=== PATIENT | male | born 1935 | race Caucasian/White ===

== ENCOUNTER 2016-12-22 07:49 | Inpatient (IN) | payer MEDICARE, BC ==
[2016-12-22] MEDS ORDERED: Furosemide 40 MG/4 ML VIAL IVPUSH ONE (08:00)
[2016-12-22] MEDS ORDERED: Sodium Chloride 0.9% 1,000 ML IV SCH (08:00)
[2016-12-22] MEDS ORDERED: Morphine 4 MG/ML Syringe IVPUSH ONE (08:00)
[2016-12-22] MEDS ORDERED: Nitroglycerin 0.4 MG Tab.SL SL ONE (08:00)
[2016-12-22] MEDS ORDERED: Morphine 4 MG/ML Syringe ONE (08:03)
[2016-12-22] MEDS ORDERED: Nitroglycerin 0.4 MG Tab.SL ONE (08:03)
--- NOTE | 2016-12-22 08:07 | EDM.PDOC ---
ED HPI GENERAL MEDICAL PROBLEM - General Chief Complaint: Chest Pain Stated Complaint: [id number] HEART ATTACK Time Seen by Provider: 12/22/16 07:58 Source of Information: Reports: Patient, Family () History Limitations: Reports: No Limitations - History of Present Illness INITIAL COMMENTS - FREE TEXT/NARRATIVE: 81 yo white male w/ PMHx. CAHD s/p five cardiac stents c/o all night chest pains w/ SOB. Pt. also w/ increase leg swelling Onset Date: 12/21/16 Onset Time: 21:00 Duration: Hour(s): Location: Reports: Chest Quality: Reports: Ache Severity: Moderate Improves with: Reports: None Worsens with: Reports: None Associated Symptoms: Reports: Chest Pain, Shortness of Breath Middle Chest Pain Score (Numeric/FACES): 8 - Related Data Allergies Allergy/AdvReac Type Severity Reaction Status Date / Time carvedilol Allergy Severe Chest Verified 12/22/16 11:06 Tightness Penicillins Allergy Severe Swelling Verified 12/22/16 11:06 procaine [From Novocain] Allergy Severe Swelling Verified 12/22/16 11:06 metolazone Allergy Unknown Other Verified 12/22/16 11:06 Home Meds: Home Meds Bilberry Fruit [Bilberry] 150 mg PO BID 01/29/16 [History] Calcium Carbonate/Vitamin D3 [Calcium 500 + Vit D 400] 1 tab PO BID 01/29/16 [ History] Candesartan Cilexetil 32 mg PO DAILY 01/29/16 [History] Clopidogrel [Plavix] 75 mg PO DAILY 01/29/16 [History] Flaxseed Oil [Flaxseed] 1 cap PO BID 01/29/16 [History] Furosemide 40 mg PO DAILY 01/29/16 [History] Isosorbide Mononitrate [Imdur] 60 mg PO DAILY 01/29/16 [History] Lecithin, Soy [Lecithin] 1 cap PO BID 01/29/16 [History] Lutein/Zeaxanthin [Lutein-Zeaxanthin 25-5 mg Sfgl] 1 cap PO DAILY 01/29/16 [ History] Metoprolol Tartrate [Lopressor] 50 mg PO DAILY 01/29/16 [History] Pravastatin Sodium [Pravachol] 1 tab PO BEDTIME 01/29/16 [History] Ubidecarenone [Co Q-10] 1 cap PO DAILY 01/29/16 [History] Apixaban [Eliquis] 5 mg PO BID 12/22/16 [History] Past Medical History HEENT History: Reports: Hard of Hearing, Impaired Vision Cardiovascular History: Reports: Angina, CAD, High Cholesterol, Hypertension, NM , PTCA, Stents Social & Family History - Family History Family Medical History: Noncontributory - Tobacco Use Smoking Status *Q: Never Smoker Second Hand Smoke Exposure: No - Caffeine Use Caffeine Use: Reports: Coffee - Recreational Drug Use Recreational Drug Use: No - Living Situation & Occupation Living situation: Reports: , with Spouse Occupation: Retired ED ROS GENERAL - Review of Systems Review Of Systems: See Below Constitutional: Reports: No Symptoms HEENT: Reports: No Symptoms Respiratory: Reports: Shortness of Breath Cardiovascular: Reports: Chest Pain Endocrine: Reports: No Symptoms GI/Abdominal: Reports: No Symptoms : Reports: No Symptoms Musculoskeletal: Reports: No Symptoms, Other (bilat leg edema) Skin: Reports: No Symptoms Neurological: Reports: No Symptoms Psychiatric: Reports: No Symptoms Hematologic/Lymphatic: Reports: No Symptoms Immunologic: Reports: No Symptoms ED EXAM, GENERAL - Physical Exam Exam: See Below Exam Limited By: No Limitations General Appearance: Alert, Obese Eye Exam: Bilateral Eye: PERRL Ears: Normal External Exam Nose: Normal Inspection Throat/Mouth: Normal Inspection, Normal Lips Head: Atraumatic, Normocephalic Neck: Normal Inspection, Supple Respiratory/Chest: No Respiratory Distress, Rales Cardiovascular: Normal Peripheral Pulses, Irregularly Irregular Peripheral Pulses: 2+: Radial (L), Radial (R), Femoral (L), Femoral (R) GI/Abdominal: Normal Bowel Sounds, Soft (Male) Exam: No Hernia Back Exam: Normal Inspection, Full Range of Motion Extremities: Pedal Edema (+2 bilateral) Neurological: Alert, Oriented, CN II-XII Intact, Normal Cognition Psychiatric: Normal Affect, Normal Mood Skin Exam: Warm, Dry, Intact Lymphatic: No Adenopathy Course - Vital Signs Last Recorded V/S: Last Vital Signs Temp 36.2 C 12/23/16 07:50 Pulse 88 12/23/16 08:37 Resp 20 12/23/16 07:50 BP 108/68 12/23/16 08:37 Pulse Ox 95 12/23/16 11:10 - Orders/Labs/Meds Orders: Active Orders 24 hr Category Date Time Status Bilberry Fruit [Bilberry] Med 12/23/16 09:00 Active 150 mg PO DAILY Calcium Carbonate/Vitamin D3 [Calcium Carbonate/Vitamin Med 12/22/16 21:00 Active D 1250 MG-200 Unit] 1 tab PO BID Candesartan Cilexetil [Candesartan Cilexetil] Med 12/23/16 09:00 Active 320 mg PO DAILY Flaxseed Oil [Flaxseed] Med 12/22/16 21:00 Pending 1 cap PO BID Lecithin, Soy [Lecithin] Med 12/22/16 21:00 Pending 1 cap PO BID Lutein/Zeaxanthin [Lutein-Zeaxanthin 25-5 mg Sfgl] Med 12/23/16 09:00 Pending 1 cap PO DAILY Pravastatin [Pravachol] Med 12/22/16 21:00 Active 40 mg PO BEDTIME Ubidecarenone [Co Q-10] Med 12/23/16 09:00 Active 1 cap PO DAILY Medication Orders Acetaminophen (Tylenol) 650 mg PO Q6H PRN PRN Reason: Pain Albuterol (Proventil Neb Soln) 2.5 mg NEB Q6H PRN PRN Reason: shortness of breath/wheezing Calcium Carbonate (Calcium Carbonate/Vitamin D 1250 Mg-200 Unit) 1 tab PO BID [facility] Last Admin: 12/23/16 08:38 Dose: 1 tab Admin: 12/22/16 20:43 Dose: 1 tab Clopidogrel Bisulfate (Plavix) 75 mg PO DAILY [facility] Last Admin: 12/23/16 08:38 Dose: 75 mg Admin: 12/22/16 11:39 Dose: 75 mg Furosemide (Lasix) 40 mg IVPUSH Q12HR [facility] Isosorbide Mononitrate (Imdur) 60 mg PO DAILY [facility] Last Admin: 12/23/16 08:38 Dose: 60 mg Admin: 12/22/16 11:40 Dose: 60 mg Metoprolol Tartrate (Lopressor) 50 mg PO DAILY [facility] Last Admin: 12/23/16 08:37 Dose: 50 mg Admin: 12/22/16 11:39 Dose: 50 mg Morphine Sulfate (Morphine) 2 mg IVPUSH Q3H PRN PRN Reason: Pain (severe 7-10) (Bilberry Fruit [ Bilberry] 150 Mg) Patients Own Med 150 mg PO DAILY [facility] Last Admin: 12/23/16 08:39 Dose: 150 mg [Candesartan Cilexetil] 320 Mg) Patients Own Med 320 mg PO DAILY [facility] Last Admin: 12/23/16 08:39 Dose: 320 mg Non-Formulary Medication (Flaxseed Oil [Flaxseed]) 1 cap PO BID KIMBERLYN Non-Formulary Medication (Lecithin, Soy [Lecithin]) 1 cap PO BID KIMBERLYN Non-Formulary Medication (Lutein/Zeaxanthin [Lutein-Zeaxanthin 25-5 Mg Sfgl]) 1 cap PO DAILY KIMBERLYN (Ubidecarenone [Co Q -10] 1 Cap) 100mg Patients Own Med 1 cap PO DAILY [facility] Last Admin: 12/23/16 08:39 Dose: 1 cap (Apixaban [Eliquis] 5 Mg) Patients Own Med 5 mg PO BID [facility] Last Admin: 12/23/16 08:38 Dose: 5 mg Admin: 12/22/16 20:44 Dose: 5 mg Admin: 12/22/16 16:15 Dose: 5 mg Ondansetron HCl (Zofran) 4 mg IVPUSH Q4H PRN PRN Reason: Nausea/Vomiting Polyethylene Glycol (Miralax) 17 gm PO DAILY PRN PRN Reason: Constipation Potassium Chloride (Klor-Con 10) 10 meq PO Q12H [facility] Pravastatin Sodium (Pravachol) 40 mg PO BEDTIME [facility] Last Admin: 12/22/16 20:43 Dose: 40 mg Sodium Chloride (Saline Flush) 10 ml FLUSH ASDIRECTED PRN PRN Reason: Keep Vein Open Labs: Laboratory Tests 12/22/16 12/22/16 12/22/16 Range/Units 08:05 08:05 08:05 WBC 7.9 (5.0-10.0) 10^3/uL RBC 4.77 (4.6-6.2) 10^6/uL Hgb 15.6 (14.0-18.0) g/dL Hct 47.1 (40.0-54.0) % MCV 98.7 (80-100) fL MCH 32.7 (27.0-34.0) pg MCHC 33.1 (33.0-35.0) g/dL Plt Count 114 L (150-450) 10^3/uL Neut % (Auto) 74.8 (42.2-75.2) % Lymph % (Auto) 13.1 L (20.5-50.1) % Winston % (Auto) 11.0 H (2-8) % Eos % (Auto) 1.0 (1.0-3.0) % Baso % (Auto) 0.1 (0.0-1.0) % PT 10.0 (9.0-12.0) SEC INR 1.0 (0.9-1.2) APTT 30.8 (22.0-34.0) SEC D-Dimer, Quantitative 1360 H (0-400) ng/mL Sodium 133 L (135-145) mmol/L Potassium 4.3 (3.6-5.0) mmol/L Chloride 95 L (101-111) mmol/L Carbon Dioxide 27.0 (21.0-31.0) mmol/L Anion Gap 15.3 BUN 16 (7-18) mg/dL Creatinine 1.3 (0.6-1.3) mg/dL Est Cr Clr Drug Dosing 51.22 mL/min Estimated GFR (MDRD) 53 BUN/Creatinine Ratio 12.30 Glucose 133 H (74-105) mg/dL Calcium 8.9 (8.4-10.2) mg/dl Magnesium (1.8-2.5) mg/dL Total Bilirubin 0.9 (0.2-1.0) mg/dL AST 30 (10-42) IU/L ALT 23 (10-60) IU/L Alkaline Phosphatase 49 (42-121) IU/L Troponin I < 0.02 (0.00-0.02) ng/ml B-Natriuretic Peptide 195 H (0-100) pg/ml Total Protein 7.3 (6.7-8.2) g/dl Albumin 3.8 (3.2-5.5) g/dl Globulin 3.5 Albumin/Globulin Ratio 1.09 Urine Color (YELLOW) Urine Appearance (CLEAR) Urine pH (5.0-9.0) Ur Specific [place] (1.005-1.030) Urine Protein (NEGATIVE) Urine Glucose (UA) (NEGATIVE) Urine Ketones (NEGATIVE) Urine Occult Blood (NEGATIVE) Urine Nitrite (NEGATIVE) Urine Bilirubin (NEGATIVE) Urine Urobilinogen (0.2-1.0) mg/dL Ur Leukocyte Esterase (NEGATIVE) Urine RBC /HPF Urine WBC (0-5/HPF) /HPF Ur Epithelial Cells /HPF Urine Bacteria (0-FEW/HPF) /HPF Urine Mucus /LPF 12/22/16 12/22/16 Range/Units 08:05 09:41 WBC (5.0-10.0) 10^3/uL RBC (4.6-6.2) 10^6/uL Hgb (14.0-18.0) g/dL Hct (40.0-54.0) % MCV (80-100) fL MCH (27.0-34.0) pg MCHC (33.0-35.0) g/dL Plt Count (150-450) 10^3/uL Neut % (Auto) (42.2-75.2) % Lymph % (Auto) (20.5-50.1) % Winston % (Auto) (2-8) % Eos % (Auto) (1.0-3.0) % Baso % (Auto) (0.0-1.0) % PT (9.0-12.0) SEC INR (0.9-1.2) APTT (22.0-34.0) SEC D-Dimer, Quantitative (0-400) ng/mL Sodium (135-145) mmol/L Potassium (3.6-5.0) mmol/L Chloride (101-111) mmol/L Carbon Dioxide (21.0-31.0) mmol/L Anion Gap BUN (7-18) mg/dL Creatinine (0.6-1.3) mg/dL Est Cr Clr Drug Dosing mL/min Estimated GFR (MDRD) BUN/Creatinine Ratio Glucose (74-105) mg/dL Calcium (8.4-10.2) mg/dl Magnesium 1.9 (1.8-2.5) mg/dL Total Bilirubin (0.2-1.0) mg/dL AST (10-42) IU/L ALT (10-60) IU/L Alkaline Phosphatase (42-121) IU/L Troponin I (0.00-0.02) ng/ml B-Natriuretic Peptide (0-100) pg/ml Total Protein (6.7-8.2) g/dl Albumin (3.2-5.5) g/dl Globulin Albumin/Globulin Ratio Urine Color Yellow (YELLOW) Urine Appearance Clear (CLEAR) Urine pH 7.0 (5.0-9.0) Ur Specific [place] 1.015 (1.005-1.030) Urine Protein Negative (NEGATIVE) Urine Glucose (UA) Negative (NEGATIVE) Urine Ketones Negative (NEGATIVE) Urine Occult Blood Small H (NEGATIVE) Urine Nitrite Negative (NEGATIVE) Urine Bilirubin Negative (NEGATIVE) Urine Urobilinogen 0.2 (0.2-1.0) mg/dL Ur Leukocyte Esterase Negative (NEGATIVE) Urine RBC 5-10 H /HPF Urine WBC Not seen (0-5/HPF) /HPF Ur Epithelial Cells Rare /HPF Urine Bacteria Not seen (0-FEW/HPF) /HPF Urine Mucus Not seen /LPF Meds: Medications Generic Name Dose Route Start Last Admin Trade Name Freq PRN Reason Stop Dose Admin Acetaminophen 650 mg 12/22/16 11:16 Tylenol PO Q6H PRN Pain Albuterol 2.5 mg 12/22/16 11:08 Proventil Neb Soln NEB Q6H PRN shortness of breath/wheezing Calcium Carbonate 1 tab 12/22/16 21:00 12/23/16 08:38 Calcium Carbonate/Vitamin D 1250 Mg-200 Unit PO 1 tab BID KIMBERLYN Administration Clopidogrel Bisulfate 75 mg 12/22/16 11:20 12/23/16 08:38 Plavix PO 75 mg DAILY KIMBERLYN Administration Furosemide 40 mg 12/23/16 21:00 Lasix IVPUSH Q12HR KIMBERLYN Isosorbide Mononitrate 60 mg 12/22/16 11:21 12/23/16 08:38 Imdur PO 60 mg DAILY KIMBERLYN Administration Metoprolol Tartrate 50 mg 12/22/16 11:21 12/23/16 08:37 Lopressor PO 50 mg DAILY KIMBERLYN Administration Morphine Sulfate 2 mg 12/22/16 11:08 Morphine IVPUSH Q3H PRN Pain (severe 7-10) (Bilberry Fruit [ 150 mg 12/23/16 09:00 12/23/16 08:39 Bilberry] 150 Mg) PO 150 mg Patients Own Med DAILY KIMBERLYN Administration [Candesartan 320 mg 12/23/16 09:00 12/23/16 08:39 Cilexetil] 320 Mg) PO 320 mg Patients Own Med DAILY KIMBERLYN Administration Non-Formulary Medication 1 cap 12/22/16 21:00 Flaxseed Oil [Flaxseed] PO BID KIMBERLYN Non-Formulary Medication 1 cap 12/22/16 21:00 Lecithin, Soy [Lecithin] PO BID KIMBERLYN Non-Formulary Medication 1 cap 12/23/16 09:00 Lutein/Zeaxanthin [Lutein-Zeaxanthin 25-5 Mg Sfgl] PO DAILY KIMBERLYN (Ubidecarenone [Co Q 1 cap 12/23/16 09:00 12/23/16 08:39 -10] 1 Cap) 100mg PO 1 cap Patients Own Med DAILY KIMBERLYN Administration (Apixaban [Eliquis] 5 mg 12/22/16 11:52 12/23/16 08:38 5 Mg) Patients Own PO 5 mg Med BID KIMBERLYN Administration Ondansetron HCl 4 mg 12/22/16 11:08 Zofran IVPUSH Q4H PRN Nausea/Vomiting Polyethylene Glycol 17 gm 12/22/16 11:08 Miralax PO DAILY PRN Constipation Potassium Chloride 10 meq 12/23/16 21:00 Klor-Con 10 PO Q12H KIMBERLYN Pravastatin Sodium 40 mg 12/22/16 21:00 12/22/16 20:43 Pravachol PO 40 mg BEDTIME KIMBERLYN Administration Sodium Chloride 10 ml 12/22/16 13:20 Saline Flush FLUSH ASDIRECTED PRN Keep Vein Open Discontinued Medications Generic Name Dose Route Start Last Admin Trade Name Freq PRN Reason Stop Dose Admin Al Hydroxide/Mg Hydroxide 30 ml 12/22/16 09:35 12/22/16 09:42 Gi Cocktail PO 12/22/16 09:36 30 ml ONETIME ONE Administration Clopidogrel Bisulfate 75 mg 12/23/16 09:00 Plavix PO DAILY KIMBERLYN Furosemide 40 mg 12/22/16 08:00 12/22/16 08:13 Lasix IVPUSH 12/22/16 08:01 30 mg NOW ONE Administration Furosemide 40 mg 12/22/16 12:00 12/23/16 04:09 Lasix IVPUSH 40 mg Q8H KIMBERLYN Administration Sodium Chloride 1,000 mls @ 50 mls/hr 12/22/16 08:00 12/22/16 08:11 Normal Saline IV 50 mls/hr ASDIRECTED KIMBERLYN Administration Iopamidol 100 ml 12/22/16 09:42 10/29/17 09:47 Isovue-370 (76%) IVPUSH 12/22/16 09:43 80 ml ONETIME ONE Administration Isosorbide Mononitrate 60 mg 12/23/16 09:00 Imdur PO DAILY [facility] Ketorolac Tromethamine 15 mg 12/22/16 11:17 12/22/16 11:42 Toradol IVPUSH 12/27/16 11:17 15 mg Q8H PRN Administration Pain Metoprolol Tartrate 50 mg 12/23/16 09:00 Lopressor PO DAILY [facility] Morphine Sulfate 4 mg 12/22/16 08:00 12/22/16 09:02 Morphine IVPUSH 12/22/16 08:01 2 mg ONETIME ONE Administration Morphine Sulfate Confirm 12/22/16 08:03 12/22/16 08:12 Morphine Administered 12/22/16 08:04 Not Given Dose 4 mg .ROUTE .STK-MED ONE Nitroglycerin 0.4 mg 12/22/16 08:00 12/22/16 08:06 Nitrostat SL 12/22/16 08:01 0.4 mg ONETIME ONE Administration Nitroglycerin Confirm 12/22/16 08:03 12/22/16 08:12 Nitrostat Administered 12/22/16 08:04 Not Given Dose 0.4 mg .ROUTE .STK-MED ONE Non-Formulary Medication 5 mg 12/22/16 21:00 Apixaban [Eliquis] PO BID [facility] Potassium Chloride 10 meq 12/22/16 11:15 12/22/16 17:55 Klor-Con 10 PO 10 meq TIDMEALS KIMBERLYN Administration Departure - Departure Time of Disposition: 10:11 Disposition: Admitted As Inpatient 67 Condition: Fair Clinical Impression: COPD exacerbation, Elevated d-dimer, Atrial fibrillation, controlled CHF (congestive heart failure) Qualifiers: Congestive heart failure type: unspecified congestive heart failure type Congestive heart failure chronicity: acute on chronic Qualified Code(s): I50.9 - Heart failure, unspecified BPH (benign prostatic hyperplasia) Qualifiers: Lower urinary tract symptom presence: unspecified whether lower urinary tract symptoms present Qualified Code(s): N40.0 - Benign prostatic hyperplasia without lower urinary tract symptoms
[2016-12-22 08:30] LABS: CHLORIDE,CL 95 mmol/L (101-111); SODIUM,NA 133 mmol/L (135-145)
[2016-12-22] MEDS ORDERED: GI Cocktail Oral Solution 30 ML PO ONE (09:35)
[2016-12-22] MEDS ORDERED: Iopamidol 755 Mg/ML 100 ML Bottle IVPUSH ONE (09:42)
[2016-12-22] MEDS ORDERED: Albuterol 0.083% 2.5 MG/3 ML Neb Soln NEB PRN (11:08)
[2016-12-22] MEDS ORDERED: Morphine 2 MG/ML Syringe IVPUSH PRN (11:08)
[2016-12-22] MEDS ORDERED: Polyethylene Glycol 3350 Powder 17 GM Packet PO PRN (11:08)
[2016-12-22] MEDS ORDERED: Ondansetron 4 MG/2 ML SDV IVPUSH PRN (11:08)
[2016-12-22] MEDS ORDERED: Acetaminophen 325 MG Tab PO PRN (11:16)
[2016-12-22] MEDS ORDERED: Ketorolac 30 MG/ML SDV IVPUSH PRN (11:17)
[2016-12-22] MEDS: Metoprolol Tartrate 50 MG Tab PO SCH (11:39)
[2016-12-22] MEDS: Clopidogrel 75 MG Tab PO SCH (11:39)
[2016-12-22] MEDS: Potassium Chloride 10 MEQ Tab.ER PO SCH ×3 (11:40→17:55)
[2016-12-22] MEDS: Isosorbide Mononitrate 60 MG Tab.ER PO SCH (11:40)
--- NOTE | 2016-12-22 11:45 | PCM.HP ---
H&P History of Present Illness - General Date of Service: 12/22/16 Admit Problem/Dx: Admission Diagnosis/Problem Admission Diagnosis/Problem CHF, Congestive heart failure Source of Information: Patient, Family () History Limitations: Reports: No Limitations - History of Present Illness Initial Comments - Free Text/Narative: 81-year-old male with past medical history of congestive heart failure, atrial fibrillation-diagnosed on 05/16/16/on Eliquis, hypertension, urinary artery disease, CVA, chronic kidney disease stage III, bilateral carotid disease, frequent ventricular premature contractions presents to the emergency room with his for having shoulder and sternal chest pain and shortness of breath. Patient stated that he has been having worsening of shortness breaths for the last 2 weeks. 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 He woke up with right shoulder pain on Friday morning and at that day it progressed to right shoulder, left shoulder, sternal chest pains. The pain is triggered by deep breathing, cough, moving arms, activities. It's rated 8/10. Patient denies radiating of the pain to neck. Pain does not change with food. Patient denies heartburn. He admitted worsening of his lower extremities edema and occasional cough with white phlegm. 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 However he and his stated that he has been taking the rest of his medications as prescribed. Patient denies unusual activities before his pain started. He denies nausea, vomiting, sweats, fever, chills, abdominal pain, constipation, diarrhea, blood in stool, black stool, dysuria, urinary frequency, blood in the urine, no unilateral weakness/numbness/tingling, or any other symptoms or concerns. In emergency room laboratory data reported WBC 7.9. Platelets 114. Hemoglobin 15.6. INR 1.0. Dimer 1360 (normal range 0-400), sodium 133. Potassium 4.3. Creatinine 1.3. Estimated GFR 53. CO2 27.0. Magnesium 1.9. LFTs normal. Troponin less than 0.02. BNP 195. 3.8. UA is unremarkable except for small urine occult blood. patient EKG did not show ST segment elevation or T-wave inversion however showed premature ventricular contractions. Also patient seems to have atrial fibrillation with heart rate of 74. Chest x-ray reported "cardiomegaly without signs of congestive heart failure". CT chest with contrast reported "no pulmonary embolism or aortic dissection. Cardiomegaly. Coronary artery disease. Minimal bilateral or septal emphysema." In emergency room patient was given morphine 4 mg. Patient had some pain relief but still continued to have aggravated chest pain with deep breathing and movement shoulders. Nitroglycerin sublingual and GI cocktail did not help the pain. Furosemide 40 mg IV push was given. Roberson catheter was placed. Last echocardiogram he had at [facility] from 07/05/2013 reported: "Interpretation Summary There is no comparison study available. There is moderate concentric left ventricular hypertrophy. Ejection Fraction = 50-55%. No regional wall motion abnormalities noted. Septal motion is consistent with conduction abnormality. There is Grade I diastolic dysfunction. The left atrium is mildly dilated. Right ventricular systolic pressure is 27 mmHg." Middle Chest Pain Score (Numeric/FACES): 8 - Related Data Allergies/Adverse Reactions: Allergies Allergy/AdvReac Type Severity Reaction Status Date / Time carvedilol Allergy Severe Chest Verified 12/22/16 11:06 Tightness Penicillins Allergy Severe Swelling Verified 12/22/16 11:06 procaine [From Novocain] Allergy Severe Swelling Verified 12/22/16 11:06 metolazone Allergy Unknown Other Verified 12/22/16 11:06 Home Medications: Home Meds Bilberry Fruit [Bilberry] 150 mg PO BID 01/29/16 [History] Calcium Carbonate/Vitamin D3 [Calcium 500 + Vit D 400] 1 tab PO BID 01/29/16 [ History] Candesartan Cilexetil 32 mg PO DAILY 01/29/16 [History] Clopidogrel [Plavix] 75 mg PO DAILY 01/29/16 [History] Flaxseed Oil [Flaxseed] 1 cap PO BID 01/29/16 [History] Furosemide 40 mg PO DAILY 01/29/16 [History] Isosorbide Mononitrate [Imdur] 60 mg PO DAILY 01/29/16 [History] Lecithin, Soy [Lecithin] 1 cap PO BID 01/29/16 [History] Lutein/Zeaxanthin [Lutein-Zeaxanthin 25-5 mg Sfgl] 1 cap PO DAILY 01/29/16 [ History] Metoprolol Tartrate [Lopressor] 50 mg PO DAILY 01/29/16 [History] Pravastatin Sodium [Pravachol] 1 tab PO BEDTIME 01/29/16 [History] Ubidecarenone [Co Q-10] 1 cap PO DAILY 01/29/16 [History] Apixaban [Eliquis] 5 mg PO BID 12/22/16 [History] Past Medical History HEENT History: Reports: Hard of Hearing, Impaired Vision Cardiovascular History: Reports: Angina, CAD, High Cholesterol, Hypertension, [place] , PTCA, Stents Respiratory History: Reports: None Gastrointestinal History: Reports: None Genitourinary History: Reports: None Musculoskeletal History: Reports: None Neurological History: Reports: None Psychiatric History: Reports: None Endocrine/Metabolic History: Reports: None Hematologic History: Reports: None Immunologic History: Reports: None - Past Surgical History Cardiovascular Surgical History: Reports: Coronary Artery Stent, Other (See Below) Other Cardiovascular Surgeries/Procedures: 5-6 stents Social & Family History - Family History Family Medical History: Noncontributory - Tobacco Use Smoking Status *Q: Never Smoker Second Hand Smoke Exposure: No - Caffeine Use Caffeine Use: Reports: Coffee - Recreational Drug Use Recreational Drug Use: No - Living Situation & Occupation Living situation: Reports: , with Spouse Occupation: Retired H&P Review of Systems - Review of Systems: Review Of Systems: ROS reveals no pertinent complaints other than HPI. Exam - Exam Exam: See Below - Vital Signs Vital Signs: Last Vital Signs Temp 36.6 C 12/22/16 07:52 Pulse 67 12/22/16 08:14 Resp 26 H 12/22/16 08:14 BP 108/60 12/22/16 08:14 Pulse Ox 97 12/22/16 08:14 Weight: 117.934 kg - Exam General: Alert, Oriented, Cooperative, Mild Distress (Due to to pain when I asked him to take a deep breath). No: Severe Distress, Sedated, Lethargic, Obtunded HEENT: Conjunctiva Clear, EACs Clear, EOMI, Hearing Intact, Mucosa Moist & [place] , Nares Patent, Normal Nasal Septum, Posterior Pharynx Clear, Pupils Equal, Pupils Reactive Neck: Supple, Trachea Midline Lungs: Decreased Breath Sounds (Globally), Crackles (Mild basilar), Other (Mild tachypnea). No: Rhonchi, Stridor, Wheezing Cardiovascular: Normal S1, Normal S2, Irregular Rhythm. No: Bradycardia, Tachycardia GI/Abdominal Exam: Normal Bowel Sounds, Soft, Non-Tender, No Organomegaly, No Distention, No Abnormal Bruit, No Mass (Male) Exam: Deferred Rectal (Males) Exam: Deferred Back Exam: Normal Inspection, Full Range of Motion Extremities: Non-Tender, Normal Capillary Refill, Pedal Edema (+3 pitting bilateral lower extremities edema) Skin: Dry, Intact. No: Rash Neurological: Cranial Nerves Intact, Normal Gait, Normal Tone. No: Focal Deficit Neuro Extensive - Mental Status: Alert, Oriented x3, Normal Mood/Affect, Normal Cognition, Memory Intact Neuro Extensive - Motor, Sensory, Reflexes: CN II-XII Intact Psychiatric: Alert, Normal Affect, Normal Mood - Patient Data Result Diagrams: 12/22/16 08:05 12/22/16 08:05 *Q Meaningful Use (ADM) - VTE *Q VTE Criteria *Q: - Stroke *Q Stroke Criteria *Q: - AMI *Q AMI Criteria *Q: - Problem List (1) Acute exacerbation of CHF (congestive heart failure) SNOMED Code(s): 34167088 ICD Code: I50.9 - HEART FAILURE, UNSPECIFIED Status: Acute Priority: High Current Visit: Yes (2) Atrial fibrillation, controlled SNOMED Code(s): 824740720 ICD Code: I48.91 - UNSPECIFIED ATRIAL FIBRILLATION Status: Chronic Current Visit: Yes (3) History of CVA (cerebrovascular accident) SNOMED Code(s): 637096936 ICD Code: Z86.73 - PRSNL HX OF TIA (TIA), AND CEREB INFRC W/O RESID DEFICITS Status: Chronic Current Visit: Yes (4) Essential hypertension SNOMED Code(s): 66880226 ICD Code: I10 - ESSENTIAL (PRIMARY) HYPERTENSION Status: Chronic Current Visit: Yes (5) History of coronary artery disease SNOMED Code(s): 019811645 ICD Code: Z86.79 - PERSONAL HISTORY OF OTHER DISEASES OF THE CIRCULATORY SYSTEM Status: Chronic Current Visit: Yes (6) Elevated d-dimer SNOMED Code(s): 618418091 ICD Code: R79.89 - OTHER SPECIFIED ABNORMAL FINDINGS OF BLOOD CHEMISTRY Status: Acute Current Visit: Yes (7) Atypical chest pain SNOMED Code(s): 859935235 ICD Code: R07.89 - OTHER CHEST PAIN Status: Acute Current Visit: No Problem List Initiated/Reviewed/Updated: Yes Orders Last 24hrs: Active Orders 24 hr Category Date Time Status Fluid Restriction [DIET] Diet 12/22/16 Lunch Active B-TYPE NATRIURETIC PEPTIDE,BNP [CHEM] AM Lab 12/23/16 05:11 Ordered Acetaminophen [Tylenol] Med 12/22/16 11:16 Active 650 mg PO Q6H PRN Clopidogrel [Plavix] Med 12/22/16 11:20 Active 75 mg PO DAILY Furosemide [Lasix] Med 12/22/16 11:15 Pending 40 mg IVPUSH Q8H Isosorbide Mononitrate [Imdur] Med 12/22/16 11:21 Active 60 mg PO DAILY Ketorolac [Toradol] Med 12/22/16 11:17 Active 15 mg IVPUSH Q8H PRN Metoprolol Tartrate [Lopressor] Med 12/22/16 11:21 Active 50 mg PO DAILY Potassium Chloride [Klor-Con 10] Med 12/22/16 11:15 Active 10 meq PO TIDMEALS Medication Orders Acetaminophen (Tylenol) 650 mg PO Q6H PRN PRN Reason: Pain Albuterol (Proventil Neb Soln) 2.5 mg NEB Q6H PRN PRN Reason: shortness of breath/wheezing Calcium Carbonate (Calcium Carbonate/Vitamin D 1250 Mg-200 Unit) 1 tab PO BID [facility] Clopidogrel Bisulfate (Plavix) 75 mg PO DAILY [facility] Furosemide (Lasix) 40 mg IVPUSH Q8H [facility] Isosorbide Mononitrate (Imdur) 60 mg PO DAILY [facility] Ketorolac Tromethamine (Toradol) 15 mg IVPUSH Q8H PRN PRN Reason: Pain Stop: 12/27/16 11:17 Metoprolol Tartrate (Lopressor) 50 mg PO DAILY [facility] Morphine Sulfate (Morphine) 2 mg IVPUSH Q3H PRN PRN Reason: Pain (severe 7-10) Non-Formulary Medication (Apixaban [Eliquis]) 5 mg PO BID [facility] Non-Formulary Medication (Bilberry Fruit [Bilberry]) 250 mg PO DAILY [facility] Non-Formulary Medication (Candesartan Cilexetil [Candesartan Cilexetil]) 32 mg PO DAILY [facility] Non-Formulary Medication (Flaxseed Oil [Flaxseed]) 1 cap PO BID [facility] Non-Formulary Medication (Lecithin, Soy [Lecithin]) 1 cap PO BID [facility] Non-Formulary Medication (Lutein/Zeaxanthin [Lutein-Zeaxanthin 25-5 Mg Sfgl]) 1 cap PO DAILY [facility] Non-Formulary Medication (Ubidecarenone [Co Q-10]) 1 cap PO DAILY [facility] Ondansetron HCl (Zofran) 4 mg IVPUSH Q4H PRN PRN Reason: Nausea/Vomiting Polyethylene Glycol (Miralax) 17 gm PO DAILY PRN PRN Reason: Constipation Potassium Chloride (Klor-Con 10) 10 meq PO TIDMEALS [facility] Pravastatin Sodium (Pravachol) 40 mg PO BEDTIME [facility] Assessment/Plan Comment:: Impression: 81-year-old male with the above past medical history presented with typical chest pain status change with deep breathing and shoulder motion in addition to progressively worsening shortness of breath and lower extremities edema with elevated BNP and, elevated d-dimer with negative CT chest with contrast for PE. Patient is most likely is having musculoskeletal chest pain and CHF exacerbation Acute problem list Congestive heart failure exacerbation Elevated d-dimer, unexplained at this time Atypical chest pain, most likely musculoskeletal versus pleurisy Chronic problem list: congestive heart failure, atrial fibrillation-diagnosed on 05/16/16/on Eliquis, hypertension, urinary artery disease, CVA, chronic kidney disease stage III, bilateral carotid disease, frequent ventricular premature contractions Plan: Patient received 40 mg of Lasix IV in the emergency room. -I will give him another 40 mg of Lasix 40 mg IV now and continue Lasix every 8 hours -Low sodium diet -Fluid restriction of 1500 mL per 24 hours -Potassium chloride 10 mEq every 8 hours while on IV Lasix -Morphine 2 mg every 8 hours as needed for pain which may help also was a congestive heart failure symptoms -Toradol 15 mg IV every 8 hours as needed for pain, maximum 2 doses Albuterol nebulizer every 6 hours as needed for shortness of breath Continue Imdur, metoprolol, Eliquis, atorvastatin -Patient did not take any of his medications today so we'll give his due/ overdue medications now. -Check troponin for other 2 sets -Repeat CBC and BMP in the morning -Echocardiogram ordered -No additional workup for the elevated d-dimer at this time since patient is on Eliquis and he has been taking it as prescribed DVT prophylaxis: Patient is on Eliquis Patient wants to be full code for CODE STATUS plan of care was discussed with patient and his and they verbalized understanding agreed with
[2016-12-22] MEDS: Furosemide 40 MG/4 ML VIAL IVPUSH SCH ×2 (12:49→20:09)
[2016-12-22] MEDS ORDERED: Sodium Chloride 0.9% 10 ML Syringe FLUSH PRN (13:20)
[2016-12-22] MEDS: Pravastatin 20 MG Tab PO SCH (20:43)
[2016-12-22] MEDS: Calcium Carbonate/Vitamin D3 1250 MG-200 Unit Tab PO SCH (20:43)
[2016-12-22] MEDS ORDERED: Non-Formulary Medication 1 Each (Apixaban [Eliquis] 5 MG) PO SCH (21:00)
[2016-12-23] MEDS: Furosemide 40 MG/4 ML VIAL IVPUSH SCH (04:09)
--- NOTE | 2016-12-23 08:13 | PCM.PN ---
- General Info Date of Service: 12/23/16 Admission Dx/Problem (Free Text): Admission Diagnosis/Problem Admission Diagnosis/Problem CHF, Congestive heart failure Subjective Update: Patient states that he is feeling much better. His shortness breath improved. He said his chest pain is almost gone and able to move his shoulders and take deep breaths with only minimal pain. His lower extremity edema improved. No change on coughing. He denies nausea, vomiting, fever, chills, abdominal pain, diarrhea, urinary symptoms, any other symptoms or concerns. Patient had 2500 mL of urine output since admission. - Patient Data Vitals - Most Recent: Last Vital Signs Temp 36.2 C 12/23/16 07:50 Pulse 88 12/23/16 07:50 Resp 20 12/23/16 07:50 BP 108/68 12/23/16 07:50 Pulse Ox 92 L 12/23/16 07:50 Weight - Most Recent: 117.991 kg I&O - Last 24 Hours: Intake & Output 12/22/16 12/23/16 12/23/16 22:59 06:59 14:59 Intake Total 640 800 Output Total 425 1651 Balance 215 -851 Lab Results Last 24 Hours: Laboratory Results - last 24 hr 12/22/16 12/22/16 12/23/16 Range/Units 14:08 20:07 06:30 WBC 9.9 (5.0-10.0) 10^3/uL RBC 4.77 (4.6-6.2) 10^6/uL Hgb 15.9 (14.0-18.0) g/dL Hct 47.3 (40.0-54.0) % MCV 99.2 (80-100) fL MCH 33.3 (27.0-34.0) pg MCHC 33.6 (33.0-35.0) g/dL Plt Count 116 L (150-450) 10^3/uL Neut % (Auto) 74.7 (42.2-75.2) % Lymph % (Auto) 9.4 L (20.5-50.1) % [place] % (Auto) 15.5 H (2-8) % Eos % (Auto) 0.2 L (1.0-3.0) % Baso % (Auto) 0.2 (0.0-1.0) % Sodium (138-146) mmol/L Potassium (3.5-4.9) mmol/L Chloride (98-109) mmol/L Carbon Dioxide (24-29) mmol/L Anion Gap BUN (8-26) mg/dL Creatinine (0.6-1.3) mg/dL Est Cr Clr Drug Dosing mL/min Estimated GFR (MDRD) Glucose (70-105) mg/dL Calcium Troponin I < 0.02 < 0.02 (0.00-0.02) ng/ml B-Natriuretic Peptide (0-100) pg/ml 12/23/16 Range/Units 06:30 WBC (5.0-10.0) 10^3/uL RBC (4.6-6.2) 10^6/uL Hgb (14.0-18.0) g/dL Hct (40.0-54.0) % MCV (80-100) fL MCH (27.0-34.0) pg MCHC (33.0-35.0) g/dL Plt Count (150-450) 10^3/uL Neut % (Auto) (42.2-75.2) % Lymph % (Auto) (20.5-50.1) % [place] % (Auto) (2-8) % Eos % (Auto) (1.0-3.0) % Baso % (Auto) (0.0-1.0) % Sodium 133 L (138-146) mmol/L Potassium 4.6 (3.5-4.9) mmol/L Chloride 91 L (98-109) mmol/L Carbon Dioxide 33 H (24-29) mmol/L Anion Gap 13.6 BUN 24 (8-26) mg/dL Creatinine 1.6 H (0.6-1.3) mg/dL Est Cr Clr Drug Dosing 41.61 mL/min Estimated GFR (MDRD) 42 Glucose 107 H (70-105) mg/dL Calcium Troponin I (0.00-0.02) ng/ml B-Natriuretic Peptide 162 H (0-100) pg/ml Med Orders - Current: Current Medications Acetaminophen (Tylenol) 650 mg PO Q6H PRN PRN Reason: Pain Albuterol (Proventil Neb Soln) 2.5 mg NEB Q6H PRN PRN Reason: shortness of breath/wheezing Calcium Carbonate (Calcium Carbonate/Vitamin D 1250 Mg-200 Unit) 1 tab PO BID [facility] Last Admin: 12/22/16 20:43 Dose: 1 tab Clopidogrel Bisulfate (Plavix) 75 mg PO DAILY [facility] Last Admin: 12/22/16 11:39 Dose: 75 mg Furosemide (Lasix) 40 mg IVPUSH Q12HR [facility] Isosorbide Mononitrate (Imdur) 60 mg PO DAILY [facility] Last Admin: 12/22/16 11:40 Dose: 60 mg Metoprolol Tartrate (Lopressor) 50 mg PO DAILY [facility] Last Admin: 12/22/16 11:39 Dose: 50 mg Morphine Sulfate (Morphine) 2 mg IVPUSH Q3H PRN PRN Reason: Pain (severe 7-10) (Bilberry Fruit [ Bilberry] 150 Mg) Patients Own Med 150 mg PO DAILY [facility] [Candesartan Cilexetil] 320 Mg) Patients Own Med 320 mg PO DAILY [facility] Non-Formulary Medication (Flaxseed Oil [Flaxseed]) 1 cap PO BID [facility] Non-Formulary Medication (Lecithin, Soy [Lecithin]) 1 cap PO BID [facility] Non-Formulary Medication (Lutein/Zeaxanthin [Lutein-Zeaxanthin 25-5 Mg Sfgl]) 1 cap PO DAILY [facility] (Ubidecarenone [Co Q -10] 1 Cap) 100mg Patients Own Med 1 cap PO DAILY [facility] (Apixaban [Eliquis] 5 Mg) Patients Own Med 5 mg PO BID [facility] Last Admin: 12/22/16 20:44 Dose: 5 mg Ondansetron HCl (Zofran) 4 mg IVPUSH Q4H PRN PRN Reason: Nausea/Vomiting Polyethylene Glycol (Miralax) 17 gm PO DAILY PRN PRN Reason: Constipation Potassium Chloride (Klor-Con 10) 10 meq PO Q12H [facility] Pravastatin Sodium (Pravachol) 40 mg PO BEDTIME [facility] Last Admin: 12/22/16 20:43 Dose: 40 mg Sodium Chloride (Saline Flush) 10 ml FLUSH ASDIRECTED PRN PRN Reason: Keep Vein Open Discontinued Medications Al Hydroxide/Mg Hydroxide (Gi Cocktail) 30 ml PO ONETIME ONE Stop: 12/22/16 09:36 Last Admin: 12/22/16 09:42 Dose: 30 ml Clopidogrel Bisulfate (Plavix) 75 mg PO DAILY [facility] Furosemide (Lasix) 40 mg IVPUSH NOW ONE Stop: 12/22/16 08:01 Last Admin: 12/22/16 08:13 Dose: 30 mg Furosemide (Lasix) 40 mg IVPUSH Q8H [facility] Last Admin: 12/23/16 04:09 Dose: 40 mg Sodium Chloride (Normal Saline) 1,000 mls @ 50 mls/hr IV ASDIRECTED [facility] Last Admin: 12/22/16 08:11 Dose: 50 mls/hr Iopamidol (Isovue-370 (76%)) 100 ml IVPUSH ONETIME ONE Stop: 12/22/16 09:43 Last Admin: 12/22/16 09:47 Dose: 80 ml Isosorbide Mononitrate (Imdur) 60 mg PO DAILY [facility] Ketorolac Tromethamine (Toradol) 15 mg IVPUSH Q8H PRN PRN Reason: Pain Stop: 12/27/16 11:17 Last Admin: 12/22/16 11:42 Dose: 15 mg Metoprolol Tartrate (Lopressor) 50 mg PO DAILY [facility] Morphine Sulfate (Morphine) 4 mg IVPUSH ONETIME ONE Stop: 12/22/16 08:01 Last Admin: 12/22/16 09:02 Dose: 2 mg Morphine Sulfate (Morphine) Confirm Administered Dose 4 mg .ROUTE .STK-MED ONE Stop: 12/22/16 08:04 Last Admin: 12/22/16 08:12 Dose: Not Given Nitroglycerin (Nitrostat) 0.4 mg SL ONETIME ONE Stop: 12/22/16 08:01 Last Admin: 12/22/16 08:06 Dose: 0.4 mg Nitroglycerin (Nitrostat) Confirm Administered Dose 0.4 mg .ROUTE .STK-MED ONE Stop: 12/22/16 08:04 Last Admin: 12/22/16 08:12 Dose: Not Given Non-Formulary Medication (Apixaban [Eliquis]) 5 mg PO BID [facility] Potassium Chloride (Klor-Con 10) 10 meq PO TIDMEALS [facility] Last Admin: 12/22/16 17:55 Dose: 10 meq - Exam General: Alert, Oriented, Cooperative, No Acute Distress, Other (He looks much better.). No: Severe Distress, Sedated, Lethargic, Obtunded HEENT: Pupils Equal, Pupils Reactive, EOMI, Mucous Membr. Moist/[place] Neck: Supple, Trachea Midline, No JVD Lungs: Decreased Breath Sounds (Improved), Crackles (Minimal in basis). No: Rales, Rhonchi, Rub, Stridor, Wheezing Cardiovascular: Regular Rate, Regular Rhythm GI/Abdominal Exam: Normal Bowel Sounds, Soft, Non-Tender, No Organomegaly, No Distention, No Abnormal Bruit, No Mass (Male) Exam: Deferred Back Exam: Normal Inspection, Full Range of Motion Extremities: Normal Inspection, Normal Range of Motion, Normal Capillary Refill , Other (His shoulders tenderness improved, lower extremities edema is improving.) Skin: Dry, Intact. No: Rash Neurological: No New Focal Deficit Psy/Mental Status: Alert, Normal Affect, Normal Mood Physical Findings Comments:: Sternal tenderness improved - Problem List & Annotations (1) Acute exacerbation of CHF (congestive heart failure) SNOMED Code(s): 40764539 Code(s): I50.9 - HEART FAILURE, UNSPECIFIED Status: Acute Priority: High Current Visit: Yes (2) Atrial fibrillation, controlled SNOMED Code(s): 164653460 Code(s): I48.91 - UNSPECIFIED ATRIAL FIBRILLATION Status: Chronic Current Visit: Yes (3) History of CVA (cerebrovascular accident) SNOMED Code(s): 675271943 Code(s): Z86.73 - PRSNL HX OF TIA (TIA), AND CEREB INFRC W/O RESID DEFICITS Status: Chronic Current Visit: Yes (4) Essential hypertension SNOMED Code(s): 54748685 Code(s): I10 - ESSENTIAL (PRIMARY) HYPERTENSION Status: Chronic Current Visit: Yes (5) History of coronary artery disease SNOMED Code(s): 348379431 Code(s): Z86.79 - PERSONAL HISTORY OF OTHER DISEASES OF THE CIRCULATORY SYSTEM Status: Chronic Current Visit: Yes (6) Elevated d-dimer SNOMED Code(s): 883911113 Code(s): R79.89 - OTHER SPECIFIED ABNORMAL FINDINGS OF BLOOD CHEMISTRY Status: Acute Current Visit: Yes (7) Atypical chest pain SNOMED Code(s): 400123759 Code(s): R07.89 - OTHER CHEST PAIN Status: Acute Current Visit: No - Problem List Review Problem List Initiated/Reviewed/Updated: Yes - My Orders Last 24 Hours: My Active Orders 12/22/16 11:16 Acetaminophen [Tylenol] 650 mg PO Q6H PRN 12/22/16 11:20 Clopidogrel [Plavix] 75 mg PO DAILY 12/22/16 11:21 Isosorbide Mononitrate [Imdur] 60 mg PO DAILY Metoprolol Tartrate [Lopressor] 50 mg PO DAILY 12/22/16 11:52 Apixaban [Eliquis] 5 mg PO BID 12/22/16 13:20 Peripheral IV Care [RC] Sodium Chloride 0.9% [Saline Flush] 10 ml FLUSH ASDIRECTED PRN Peripheral IV Insertion Adult [OM.PC] Routine 12/22/16 Lunch Fluid Restriction [DIET] 12/23/16 07:00 Echo Comp wo Cont [US] Routine 12/23/16 21:00 Furosemide [Lasix] 40 mg IVPUSH Q12HR Potassium Chloride [Klor-Con 10] 10 meq PO Q12H 12/24/16 05:11 B-TYPE NATRIURETIC PEPTIDE,BNP [CHEM] AM BASIC METABOLIC PANEL,BMP [CHEM] AM - Plan Plan:: Impression: 81-year-old male with the above past medical history presented with typical chest pain status change with deep breathing and shoulder motion in addition to progressively worsening shortness of breath and lower extremities edema with elevated BNP and, elevated d-dimer, -3 sets of troponin with negative CT chest with contrast for PE. Patient is most likely is having musculoskeletal chest pain and CHF exacerbation Acute problem list Congestive heart failure exacerbation Elevated d-dimer, unexplained at this time Atypical chest pain, most likely musculoskeletal versus pleurisy Chronic problem list: congestive heart failure, atrial fibrillation-diagnosed on 05/16/16/on Eliquis, hypertension, urinary artery disease, CVA, chronic kidney disease stage III, bilateral carotid disease, frequent ventricular premature contractions Plan: Patient received 30 mg of Lasix IV in the emergency room. -Patient received Lasix 40 mg IV upon arrival to the floor, then every 8 hours. -Morning creatinine increased from 1.3-1.6, so I'm changing Lasix from every 8 hours to every 12 hours -Patient chest pain markedly improved after receiving Toradol 15 mg yesterday, today chest pain is almost gone. No more Toradol -Low sodium diet -Fluid restriction of 1500 mL per 24 hours -Potassium chloride 10 mEq every 12 hours while on IV Lasix -Morphine 2 mg every 8 hours as needed for pain which may help also was a congestive heart failure symptoms Albuterol nebulizer every 6 hours as needed for shortness of breath Continue Imdur, metoprolol, Eliquis, atorvastatin -Repeat BMP and BNP in the morning -Echocardiogram ordered. There is no tachycardia available today so echocardiogram will be done tomorrow. -No additional workup for the elevated d-dimer at this time since patient is on Eliquis and he has been taking it as prescribed DVT prophylaxis: Patient is on Eliquis Patient wants to be full code for CODE STATUS plan of care was discussed with patient and his and they verbalized understanding agreed with
[2016-12-23] MEDS: Metoprolol Tartrate 50 MG Tab PO SCH (08:37)
[2016-12-23] MEDS: Clopidogrel 75 MG Tab PO SCH (08:38)
[2016-12-23] MEDS: Calcium Carbonate/Vitamin D3 1250 MG-200 Unit Tab PO SCH ×2 (08:38→21:05)
[2016-12-23] MEDS: Isosorbide Mononitrate 60 MG Tab.ER PO SCH (08:38)
[2016-12-23] MEDS: [UNRECOGNIZED DRUG - OTHER] PO SCH (08:39)
[2016-12-23] MEDS: CANDESARTAN CILEXETIL PO SCH (08:39)
[2016-12-23] MEDS ORDERED: Metoprolol Tartrate 50 MG Tab PO SCH (09:00)
[2016-12-23] MEDS ORDERED: Clopidogrel 75 MG Tab PO SCH (09:00)
[2016-12-23] MEDS ORDERED: Isosorbide Mononitrate 60 MG Tab.ER PO SCH (09:00)
[2016-12-23] MEDS ORDERED: Furosemide 40 MG/4 ML VIAL IVPUSH SCH (21:00)
[2016-12-23] MEDS ORDERED: Potassium Chloride 10 MEQ Tab.ER PO SCH (21:00)
[2016-12-23] MEDS: Pravastatin 20 MG Tab PO SCH (21:05)
--- NOTE | 2016-12-24 08:01 | PCM.PN ---
- General Info Date of Service: 12/24/16 Admission Dx/Problem (Free Text): Admission Diagnosis/Problem Admission Diagnosis/Problem CHF, Congestive heart failure Subjective Update: Patient states that he is feeling much better. His shortness breath improved. He said has no more chest pain or shoulder pain. His lower extremity edema improved. No change on coughing. He denies nausea, vomiting, fever, chills, abdominal pain, diarrhea, urinary symptoms, any other symptoms or concerns. Patient had 3600 mL of urine output since admission. - Patient Data Vitals - Most Recent: Last Vital Signs Temp 37.1 C 12/24/16 07:00 Pulse 80 12/24/16 07:00 Resp 20 12/24/16 03:44 BP 118/81 12/24/16 07:00 Pulse Ox 94 L 12/24/16 03:44 Weight - Most Recent: 117.027 kg I&O - Last 24 Hours: Intake & Output 12/23/16 12/24/16 12/24/16 22:59 06:59 14:59 Intake Total 200 200 Output Total 1500 2100 Balance -1300 -1900 Lab Results Last 24 Hours: Laboratory Results - last 24 hr 12/24/16 Range/Units 05:55 Sodium 132 L (135-145) mmol/L Potassium 3.9 (3.6-5.0) mmol/L Chloride 93 L (101-111) mmol/L Carbon Dioxide 28.0 (21.0-31.0) mmol/L Anion Gap 14.9 BUN 25 H (7-18) mg/dL Creatinine 1.6 H (0.6-1.3) mg/dL Est Cr Clr Drug Dosing 41.61 mL/min Estimated GFR (MDRD) 42 Glucose 128 H (74-105) mg/dL Calcium 8.6 (8.4-10.2) mg/dl B-Natriuretic Peptide 104 H (0-100) pg/ml Med Orders - Current: Current Medications Acetaminophen (Tylenol) 650 mg PO Q6H PRN PRN Reason: Pain Albuterol (Proventil Neb Soln) 2.5 mg NEB Q6H PRN PRN Reason: shortness of breath/wheezing Calcium Carbonate (Calcium Carbonate/Vitamin D 1250 Mg-200 Unit) 1 tab PO BID KIMBERLYN Last Admin: 12/23/16 21:05 Dose: 1 tab Clopidogrel Bisulfate (Plavix) 75 mg PO DAILY [facility] Last Admin: 12/23/16 08:38 Dose: 75 mg Furosemide (Lasix) 40 mg PO DAILY [facility] Isosorbide Mononitrate (Imdur) 60 mg PO DAILY [facility] Last Admin: 12/23/16 08:38 Dose: 60 mg Metoprolol Tartrate (Lopressor) 50 mg PO DAILY [facility] Last Admin: 12/23/16 08:37 Dose: 50 mg Morphine Sulfate (Morphine) 2 mg IVPUSH Q3H PRN PRN Reason: Pain (severe 7-10) (Bilberry Fruit [ Bilberry] 150 Mg) Patients Own Med 150 mg PO DAILY [facility] Last Admin: 12/23/16 08:39 Dose: 150 mg [Candesartan Cilexetil] 320 Mg) Patients Own Med 320 mg PO DAILY [facility] Last Admin: 12/23/16 08:39 Dose: 320 mg Non-Formulary Medication (Flaxseed Oil [Flaxseed]) 1 cap PO BID [facility] Non-Formulary Medication (Lecithin, Soy [Lecithin]) 1 cap PO BID [facility] Non-Formulary Medication (Lutein/Zeaxanthin [Lutein-Zeaxanthin 25-5 Mg Sfgl]) 1 cap PO DAILY [facility] (Ubidecarenone [Co Q -10] 1 Cap) 100mg Patients Own Med 1 cap PO DAILY [facility] Last Admin: 12/23/16 08:39 Dose: 1 cap (Apixaban [Eliquis] 5 Mg) Patients Own Med 5 mg PO BID [facility] Last Admin: 12/23/16 21:04 Dose: 5 mg Ondansetron HCl (Zofran) 4 mg IVPUSH Q4H PRN PRN Reason: Nausea/Vomiting Polyethylene Glycol (Miralax) 17 gm PO DAILY PRN PRN Reason: Constipation Potassium Chloride (Klor-Con 10) 10 meq PO Q24H [facility] Pravastatin Sodium (Pravachol) 40 mg PO BEDTIME [facility] Last Admin: 12/23/16 21:05 Dose: 40 mg Sodium Chloride (Saline Flush) 10 ml FLUSH ASDIRECTED PRN PRN Reason: Keep Vein Open Last Admin: 12/23/16 21:05 Dose: 10 ml Discontinued Medications Al Hydroxide/Mg Hydroxide (Gi Cocktail) 30 ml PO ONETIME ONE Stop: 12/22/16 09:36 Last Admin: 12/22/16 09:42 Dose: 30 ml Clopidogrel Bisulfate (Plavix) 75 mg PO DAILY [facility] Furosemide (Lasix) 40 mg IVPUSH NOW ONE Stop: 12/22/16 08:01 Last Admin: 12/22/16 08:13 Dose: 30 mg Furosemide (Lasix) 40 mg IVPUSH Q8H [facility] Last Admin: 12/23/16 04:09 Dose: 40 mg Furosemide (Lasix) 40 mg IVPUSH Q12HR [facility] Last Admin: 12/23/16 21:06 Dose: 40 mg Sodium Chloride (Normal Saline) 1,000 mls @ 50 mls/hr IV ASDIRECTED [facility] Last Admin: 12/22/16 08:11 Dose: 50 mls/hr Iopamidol (Isovue-370 (76%)) 100 ml IVPUSH ONETIME ONE Stop: 12/22/16 09:43 Last Admin: 12/22/16 09:47 Dose: 80 ml Isosorbide Mononitrate (Imdur) 60 mg PO DAILY [facility] Ketorolac Tromethamine (Toradol) 15 mg IVPUSH Q8H PRN PRN Reason: Pain Stop: 12/27/16 11:17 Last Admin: 12/22/16 11:42 Dose: 15 mg Metoprolol Tartrate (Lopressor) 50 mg PO DAILY [facility] Morphine Sulfate (Morphine) 4 mg IVPUSH ONETIME ONE Stop: 12/22/16 08:01 Last Admin: 12/22/16 09:02 Dose: 2 mg Morphine Sulfate (Morphine) Confirm Administered Dose 4 mg .ROUTE .STK-MED ONE Stop: 12/22/16 08:04 Last Admin: 12/22/16 08:12 Dose: Not Given Nitroglycerin (Nitrostat) 0.4 mg SL ONETIME ONE Stop: 12/22/16 08:01 Last Admin: 12/22/16 08:06 Dose: 0.4 mg Nitroglycerin (Nitrostat) Confirm Administered Dose 0.4 mg .ROUTE .STK-MED ONE Stop: 12/22/16 08:04 Last Admin: 12/22/16 08:12 Dose: Not Given Non-Formulary Medication (Apixaban [Eliquis]) 5 mg PO BID [facility] Potassium Chloride (Klor-Con 10) 10 meq PO TIDMEALS [facility] Last Admin: 12/22/16 17:55 Dose: 10 meq Potassium Chloride (Klor-Con 10) 10 meq PO Q12H [facility] Last Admin: 12/23/16 21:05 Dose: 10 meq - Exam General: Alert, Oriented, Cooperative, No Acute Distress. No: Mild Distress, Moderate Distress, Severe Distress, Sedated, Lethargic, Obtunded HEENT: Pupils Equal, Pupils Reactive, EOMI, Mucous Membr. Moist/[place] Neck: Supple, Trachea Midline, No JVD Lungs: Clear to Auscultation, Normal Respiratory Effort. No: Rales, Rhonchi, Rub, Stridor, Wheezing Cardiovascular: Regular Rate, Regular Rhythm GI/Abdominal Exam: Normal Bowel Sounds, Soft, Non-Tender, No Organomegaly, No Distention, No Abnormal Bruit, No Mass (Male) Exam: Deferred Back Exam: Normal Inspection, Full Range of Motion Extremities: Normal Range of Motion, Normal Capillary Refill, Pedal Edema (+1 jean lower extremities edema, markedy improved since admission) Skin: Dry, Intact. No: Rash Neurological: No New Focal Deficit Psy/Mental Status: Alert, Normal Affect, Normal Mood - Problem List & Annotations (1) Acute exacerbation of CHF (congestive heart failure) SNOMED Code(s): 41663827 Code(s): I50.9 - HEART FAILURE, UNSPECIFIED Status: Acute Priority: High Current Visit: Yes (2) Atrial fibrillation, controlled SNOMED Code(s): 883148183 Code(s): I48.91 - UNSPECIFIED ATRIAL FIBRILLATION Status: Chronic Current Visit: Yes (3) History of CVA (cerebrovascular accident) SNOMED Code(s): 843296294 Code(s): Z86.73 - PRSNL HX OF TIA (TIA), AND CEREB INFRC W/O RESID DEFICITS Status: Chronic Current Visit: Yes (4) Essential hypertension SNOMED Code(s): 73739208 Code(s): I10 - ESSENTIAL (PRIMARY) HYPERTENSION Status: Chronic Current Visit: Yes (5) History of coronary artery disease SNOMED Code(s): 654998041 Code(s): Z86.79 - PERSONAL HISTORY OF OTHER DISEASES OF THE CIRCULATORY SYSTEM Status: Chronic Current Visit: Yes (6) Elevated d-dimer SNOMED Code(s): 468873605 Code(s): R79.89 - OTHER SPECIFIED ABNORMAL FINDINGS OF BLOOD CHEMISTRY Status: Acute Current Visit: Yes (7) Atypical chest pain SNOMED Code(s): 263053590 Code(s): R07.89 - OTHER CHEST PAIN Status: Acute Current Visit: No - Problem List Review Problem List Initiated/Reviewed/Updated: Yes - My Orders Last 24 Hours: My Active Orders 12/24/16 08:00 Echo Comp wo Cont [US] Routine 12/24/16 09:00 Furosemide [Lasix] 40 mg PO DAILY Potassium Chloride [Klor-Con 10] 10 meq PO Q24H 12/25/16 05:11 BASIC METABOLIC PANEL,BMP [CHEM] AM - Plan Plan:: Impression: 81-year-old male with the above past medical history presented with typical chest pain status change with deep breathing and shoulder motion in addition to progressively worsening shortness of breath and lower extremities edema with elevated BNP and, elevated d-dimer, -3 sets of troponin with negative CT chest with contrast for PE. Patient is most likely is having musculoskeletal chest pain and CHF exacerbation Acute problem list Congestive heart failure exacerbation Elevated d-dimer, unexplained at this time Atypical chest pain, most likely musculoskeletal versus pleurisy Chronic problem list: congestive heart failure, atrial fibrillation-diagnosed on 05/16/16/on Eliquis, hypertension, urinary artery disease, CVA, chronic kidney disease stage III, bilateral carotid disease, frequent ventricular premature contractions Plan: Patient received 30 mg of Lasix IV in the emergency room. -Patient received Lasix 40 mg IV upon arrival to the floor, then every 8 hours for 3 total of 3 doses, then every 12 hours for 2 doses. last IV dose was at 9 pm on 12/23/16 -Morning creatinine increased from 1.3-1.6. I wonder if this his baseline now. will recheck BMP tomorrow -Patient chest pain markedly improved after receiving one dose of Toradol 15 mg on admission. No more Toradol -Low sodium diet -Fluid restriction of 1500 mL per 24 hours -Changed Potassium chloride 10 mEq, from tid, to bid, and today to daily -Morphine 2 mg every 8 hours as needed for pain which may help also was a congestive heart failure symptoms. -Albuterol nebulizer every 6 hours as needed for shortness of breath. did not needed it yet Continue Imdur, metoprolol, Eliquis, atorvastatin -Repeat BMP and BNP in the morning -Echocardiogram ordered. There was no tech available yesterday so it will be done today. -No additional workup for the elevated d-dimer at this time since patient is on Eliquis and he has been taking it as prescribed plan was discussed with Dr. Gaffney, conference organizer at [facility] per family request and Dr. Gaffney agreed with above -Patient was advised to follow with Dr. Gaffney, Art Therapist and Dr. Ny, Body Technician within 2 weeks after discharged he was advised no to take NSAIDs and adhere to his treatment -Remove [place] catheter today -Will watch his kidney function and response to his home dose of lasix for one more day and if response is good and creatinine is not getting worse, he can be possibly discharged tomorrow DVT prophylaxis: Patient is on Eliquis Patient wants to be full code for CODE STATUS plan of care was discussed with patient and his and they verbalized understanding agreed with
[2016-12-24] MEDS: Calcium Carbonate/Vitamin D3 1250 MG-200 Unit Tab PO SCH ×2 (09:48→20:23)
[2016-12-24] MEDS: [UNRECOGNIZED DRUG - OTHER] PO SCH (09:48)
[2016-12-24] MEDS: Clopidogrel 75 MG Tab PO SCH (09:53)
[2016-12-24] MEDS: Furosemide 40 MG Tab PO SCH (09:54)
[2016-12-24] MEDS: Potassium Chloride 10 MEQ Tab.ER PO SCH (09:54)
[2016-12-24] MEDS: Metoprolol Tartrate 50 MG Tab PO SCH (09:54)
[2016-12-24] MEDS: Isosorbide Mononitrate 60 MG Tab.ER PO SCH (09:54)
--- NOTE | 2016-12-24 09:56 | EKG ---
12/22/2016 - LONNIE WHARTON I reviewed the EKG and patient possibly have atrial fibrillation. However, some and I see frequent PVCs. Reviewing patient's charts, patient has history of frequent PVCs. Otherwise, agree with the machine reading. [facility] /[id number]
[2016-12-24] MEDS: CANDESARTAN CILEXETIL 32 MG PO SCH (10:56)
[2016-12-24] MEDS: CANDESARTAN CILEXETIL PO SCH (11:45)
[2016-12-24] MEDS: LECITHIN SOY PO SCH (15:36)
[2016-12-24] MEDS: FLAXSEED OIL PO SCH (15:36)
[2016-12-24] MEDS: ZEAXANTHIN PO SCH (15:37)
[2016-12-24] MEDS: [UNRECOGNIZED DRUG - OTHER] PO SCH (15:37)
[2016-12-24] MEDS: LUTEIN PO SCH (15:37)
[2016-12-24] MEDS: Pravastatin 20 MG Tab PO SCH (20:23)
[2016-12-25 07:37] VITALS: BP 123/81
[2016-12-25] MEDS: FLAXSEED OIL PO SCH ×3 (08:20→08:22)
[2016-12-25] MEDS: LECITHIN SOY PO SCH ×2 (08:21→08:22)
[2016-12-25] MEDS: [UNRECOGNIZED DRUG - OTHER] PO SCH (08:21)
[2016-12-25] MEDS: LUTEIN PO SCH (08:21)
[2016-12-25] MEDS: ZEAXANTHIN PO SCH (08:21)
[2016-12-25] MEDS: Isosorbide Mononitrate 60 MG Tab.ER PO SCH (08:49)
[2016-12-25] MEDS: Potassium Chloride 10 MEQ Tab.ER PO SCH (08:49)
[2016-12-25] MEDS: Clopidogrel 75 MG Tab PO SCH (08:49)
[2016-12-25] MEDS: Metoprolol Tartrate 50 MG Tab PO SCH (08:50)
[2016-12-25] MEDS: Furosemide 40 MG Tab PO SCH (08:50)
[2016-12-25] MEDS: Calcium Carbonate/Vitamin D3 1250 MG-200 Unit Tab PO SCH (08:51)
[2016-12-25] MEDS: [UNRECOGNIZED DRUG - OTHER] PO SCH (08:52)
[2016-12-25] MEDS: CANDESARTAN CILEXETIL 32 MG PO SCH (08:52)
--- NOTE | 2016-12-26 01:32 | DISCH ---
ADMITTING DIAGNOSES: 1. Acute on chronic congestive heart failure. 2. Chest pain. 3. Elevated D-dimer. DISCHARGE DIAGNOSES: 1. Acute on chronic congestive heart failure secondary to possible systolic dysfunction with ejection fraction of 49.2, preliminary report. Official report of 2D echocardiogram is still pending at the time of discharge. 2. Atrial fibrillation. 3. Atypical chest pain. 4. Elevated D-dimer with negative pulmonary embolism study, CT scans of chest. 5. Noncompliance with medical treatment. 6. Hyponatremia. HISTORY OF PRESENTING ILLNESS: Mr. Ramesh Mcbride is an 81-year-old male with a medical history significant for chronic congestive heart failure; atrial fibrillation, on chronic anticoagulation with Eliquis; hypertension; coronary artery disease; cerebrovascular accident; chronic kidney disease, stage 3; and bilateral carotid disease, presented with increasing shortness of breath for the last 2 weeks and noted that the patient was not taking his Lasix as prescribed. 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 The patient got admitted to the hospital. The patient was complaining of mild intermittent chest pain, which was thought to be musculoskeletal in nature on this admission. His serial cardiac enzymes remained negative. A 12-lead EKG did not show any acute ST elevation or ST depression. The patient also had a CT scan of the chest with PE protocol, which was negative. He will continue with Eliquis for now. His chest pain got resolved after getting admitted to the hospital, which could be resulting from his underlying CHF exacerbation. The patient was treated with IV Lasix and then switched to oral Lasix at the time of discharge. He responded well. He is able to ambulate without any difficulty. The patient has lost almost 3 L of fluid after coming to the hospital. The patient was educated about the importance of being compliant with medications. With Lasix, he is advised to check his weight every other day and report to the primary care physician if he gains more than 3 to 5 pounds. He is advised to have low sodium diet and also fluid restriction to 1.5 L a day. He is advised to follow with his primary care physician in the next 1 week of time. He is advised to follow with his [facility] as scheduled. He is discharged home in stable condition. DISCHARGE MEDICATIONS: Include: 1. Eliquis 5 mg twice a day. 2. Bilberry fruit 150 mg twice a day. 3. Calcium carbonate with vitamin D 1 tablet twice a day. 4. Candesartan 32 mg daily. 5. Plavix 75 mg daily. 6. Flaxseed 1 capsule twice a day. 7. Lasix 40 mg daily. 8. Imdur 60 mg daily. 9. Soy lecithin 1 capsule twice a day. 10.Metoprolol 50 mg daily. 11.Pravastatin 1 tablet daily, 40 mg. 12.CoQ10 of 1 tablet daily. PHYSICAL EXAMINATION ON DAY OF DISCHARGE: Vital Signs: Temperature of 97.4, pulse of 76, blood pressure 123/81, respiratory rate of 20, and saturating at 94% on room air. General Appearance: The patient is well oriented to time, place, and person. Follows commands spontaneously. Cardiovascular System: S1 and S2 heard with normal intensity. No gallops. Respiratory System: Clear to auscultation bilaterally. No wheeze. No crepitations. Abdomen: Soft. Bowel sounds positive. Nontender. No rigidity. Extremities: 1 to 2+ pitting edema in bilateral lower extremities. Neurologic: No gross focal neurological deficit. SIGNIFICANT LABORATORY DATA: BNP at the time of admission was 162 and at the time of discharge is 104. CONDITION ON ADMISSION: Poor. CONDITION ON DISCHARGE: Stable. DIET: Cardiac healthy diet with low sodium and fluid restriction. ACTIVITY: As tolerated. FOLLOWUP: Follow with primary care physician in the next 1 week's of time and to follow with [facility] as scheduled. I spent over 35 minutes of time in evaluating and treating this patient and coordination of cares. [facility] /[id number]
== END 2016-12-25 09:20 | disposition home or self-care (01) | DRG 291 ==
LOC: DL.ED 07:49 → UNDOADMIN 10:12 → DL.MS 10:12
PROVIDERS: ADMIT Family Medicine; ATTEND Family Medicine
DX: J44.1 Chronic obstructive pulmonary disease with (acute) exacerbation (principal); I13.0 Hypertensive heart and chronic kidney disease with heart failure and stage 1 through stage 4 chronic kidney disease, or unspecified chronic kidney disease; N40.0 Benign prostatic hyperplasia without lower urinary tract symptoms; I11.0 Hypertensive heart disease with heart failure; I50.9 Heart failure, unspecified; I50.23 Acute on chronic systolic (congestive) heart failure; E87.1 Hypo-osmolality and hyponatremia; N18.3 Chronic kidney disease, stage 3 (moderate); I48.91 Unspecified atrial fibrillation; Z91.14 Patient's other noncompliance with medication regimen; R07.89 Other chest pain; I25.10 Atherosclerotic heart disease of native coronary artery without angina pectoris; Z95.5 Presence of coronary angioplasty implant and graft; Z86.73 Personal history of transient ischemic attack (TIA), and cerebral infarction without residual deficits; Z79.01 Long term (current) use of anticoagulants; Z79.02 Long term (current) use of antithrombotics/antiplatelets; Z79.899 Other long term (current) drug therapy
CPT/HCPCS: 36415; 71010; 71260; 80053; 81001; 83735; 83880; 84484; 85025; 85379; 85610; 85730; 93005; 93010; 96361; 96374; 96375; 99285; A9270 ×2; J1940; J2270; J7030; Q9967 ×2; 80048; 93306; J1885; J7050

== ENCOUNTER 2017-01-15 11:16 | Inpatient (IN) | payer MEDICARE, BC ==
[2017-01-15] MEDS ORDERED: Zolpidem 5 MG Tab PO PRN (12:14)
[2017-01-15] MEDS ORDERED: Acetaminophen 325 MG Tab PO PRN (12:14)
[2017-01-15] MEDS ORDERED: Ondansetron 4 MG Tab.DIS PO PRN (12:14)
--- NOTE | 2017-01-15 12:22 | PCM.HP ---
H&P History of Present Illness - General Date of Service: 01/15/17 Admit Problem/Dx: Admission Diagnosis/Problem Admission Diagnosis/Problem CHF, Congestive heart failure Source of Information: Patient, Family (), Provider (Referral nurse practitioner) - History of Present Illness Initial Comments - Free Text/Narative: The patient is an 81-year-old gentleman with a past medical history significant for coronary artery disease, hypertension, stroke, chronic kidney disease stage III. The patient has history of congestive heart failure secondary to systolic dysfunction due to ischemic cardiomyopathy. . It appears that the patient's ejection fraction has been recently better. Last echocardiogram January [id number] showed an ejection fraction of 50-55%. The study was difficult due to the patient's underlying A. fib rhythm and they could not comment on diastolic function. He has a history of atrial fibrillation, has been on chronic anticoagulation. The patient was hospitalized with congestive heart failure a few weeks ago. Improved after diuretics. After returning home the patient has been developing increasing lower extremity edema. He was on Lasix 40 mg daily. The patient was seen by [facility] clinic in [place] last Friday. His Lasix was increased from 40 mg daily to twice a day. On the day of admission the patient went to see his primary care physician and significant shortness of breath was noted. The patient has moderate to severe shortness of breath, worse with activity. No associated chest pain. Has significant leg edema. He says he is drinking very little. Trying to limit oral fluid intake. - Related Data Allergies/Adverse Reactions: Allergies Allergy/AdvReac Type Severity Reaction Status Date / Time carvedilol Allergy Severe Chest Verified 01/15/17 11:52 Tightness Penicillins Allergy Severe Swelling Verified 01/15/17 11:52 procaine [From Novocain] Allergy Severe Swelling Verified 01/15/17 11:52 metolazone Allergy Unknown Other Verified 01/15/17 11:52 Home Medications: Home Meds Bilberry Fruit [Bilberry] 150 mg PO DAILY 01/29/16 [History] Candesartan Cilexetil 32 mg PO DAILY 01/29/16 [History] Clopidogrel [Plavix] 75 mg PO DAILY 01/29/16 [History] Flaxseed Oil [Flaxseed] 1 cap PO BID 01/29/16 [History] Furosemide 40 mg PO BID 01/29/16 [History] Isosorbide Mononitrate [Imdur] 60 mg PO DAILY 01/29/16 [History] Lecithin, Soy [Lecithin] 1 cap PO BID 01/29/16 [History] Metoprolol Tartrate [Lopressor] 50 mg PO DAILY 01/29/16 [History] Pravastatin Sodium [Pravachol] 1 tab PO BEDTIME 01/29/16 [History] Ubidecarenone [Co Q-10] 1 cap PO DAILY 01/29/16 [History] Apixaban [Eliquis] 5 mg PO BID 12/22/16 [History] Nitroglycerin 0.4 mg SL DAILY PRN 01/15/17 [History] Past Medical History HEENT History: Reports: Hard of Hearing, Impaired Vision Cardiovascular History: Reports: Angina, CAD, High Cholesterol, Hypertension, CO , PTCA, Stents Respiratory History: Reports: None Gastrointestinal History: Reports: None Genitourinary History: Reports: None Musculoskeletal History: Reports: None Neurological History: Reports: None Psychiatric History: Reports: None Endocrine/Metabolic History: Reports: None Hematologic History: Reports: None Immunologic History: Reports: None Oncologic (Cancer) History: Reports: Basal Cell Carcinoma Dermatologic History: Reports: None - Infectious Disease History Infectious Disease History: Reports: Chicken Pox, Measles, Mumps - Past Surgical History Oncologic Surgical History: Reports: None Dermatological Surgical History: Reports: None Social & Family History - Family History Family Medical History: Noncontributory - Tobacco Use Smoking Status *Q: Former Smoker Years of Tobacco use: 50 Packs/Tins Daily: 1 Used Tobacco, but Quit: Yes Month Tobacco Last Used: 01/1997 Second Hand Smoke Exposure: No - Caffeine Use Caffeine Use: Reports: Coffee - Alcohol Use Number of Drinks Per Day: 0 - Recreational Drug Use Recreational Drug Use: No - Living Situation & Occupation Living situation: Reports: , with Spouse Occupation: Retired H&P Review of Systems - Review of Systems: Review Of Systems: See Below General: Denies: Fever Pulmonary: Reports: Shortness of Breath. Denies: Cough Cardiovascular: Denies: Chest Pain, Palpitations Gastrointestinal: Denies: Abdominal Pain Musculoskeletal: Reports: Other Exam - Exam Exam: (Bilateral leg edema) - Vital Signs Vital Signs: Last Vital Signs Temp 36.1 C 01/15/17 11:30 Pulse 57 L 01/15/17 11:30 Resp 24 H 01/15/17 11:30 BP 142/99 H 01/15/17 11:30 Pulse Ox 94 L 01/15/17 11:30 Weight: 122.379 kg - Exam Quality Assessment: No: Supplemental Oxygen General: Alert, Oriented Neck: Supple Lungs: Other (Left basilar decreased breath sounds) Cardiovascular: Irregular Rhythm Extremities: Pedal Edema (Massive bilateral lower extremity) Neuro Extensive - Mental Status: Alert, Oriented x3, Normal Mood/Affect, Other ( Dysarthria) Psychiatric: Alert, Normal Affect, Normal Mood - Patient Data Lab Results Last 24 hrs: Laboratory studies from [facility] were reviewed. White blood cell count 8.1, hemoglobin 12.9, platelets 256. Sodium 123, potassium 4.3, BNP 20, creatinine 1.5. Chest x-ray per my reading shows a large left pleural effusion *Q Meaningful Use (ADM) - VTE *Q VTE Criteria *Q: - Stroke *Q Stroke Criteria *Q: - AMI *Q AMI Criteria *Q: - Problem List (1) Acute exacerbation of CHF (congestive heart failure) SNOMED Code(s): 82468314 ICD Code: I50.9 - HEART FAILURE, UNSPECIFIED Status: Acute Priority: High Current Visit: No (2) Atrial fibrillation, controlled SNOMED Code(s): 172816755 ICD Code: I48.91 - UNSPECIFIED ATRIAL FIBRILLATION Status: Chronic Current Visit: No (3) Essential hypertension SNOMED Code(s): 94160094 ICD Code: I10 - ESSENTIAL (PRIMARY) HYPERTENSION Status: Chronic Current Visit: No Problem List Initiated/Reviewed/Updated: Yes Orders Last 24hrs: Active Orders 24 hr Category Date Time Status Patient Status [ADT] Routine ADT 01/15/17 12:15 Ordered Antiembolic Devices [RC] PER UNIT ROUTINE Care 01/15/17 12:16 Ordered Oxygen Therapy [RC] PRN Care 01/15/17 12:15 Ordered Peripheral IV Care [RC] . DIRECTED Care 01/15/17 12:16 Ordered Up With Assistance [RC] ASDIRECTED Care 01/15/17 12:14 Ordered VTE/DVT Education [RC] PER UNIT ROUTINE Care 01/15/17 12:15 Ordered Vital Signs [RC] Q4H Care 01/15/17 12:15 Ordered 2 Gram Sodium Diet [DIET] Diet 01/15/17 Dinner Ordered Fluid Restriction [DIET] Diet 01/15/17 Dinner Ordered B-TYPE NATRIURETIC PEPTIDE,BNP [CHEM] AM Lab 01/17/17 05:11 Ordered BASIC METABOLIC PANEL,BMP [CHEM] AM Lab 01/16/17 05:15 Ordered CBC WITH AUTO DIFF [HEME] AM Lab 01/16/17 05:15 Ordered MAGNESIUM [CHEM] AM Lab 01/16/17 05:11 Ordered PHOSPHORUS [CHEM] AM Lab 01/16/17 05:11 Ordered Acetaminophen [Tylenol] Med 01/15/17 12:14 Ordered 650 mg PO Q4H PRN Apixaban [Eliquis] Med 01/15/17 21:00 Ordered 5 mg PO BID Candesartan Cilexetil [Candesartan Cilexetil] Med 01/16/17 09:00 Ordered 32 mg PO DAILY Clopidogrel [Plavix] Med 01/16/17 09:00 Ordered 75 mg PO DAILY Furosemide [Lasix] Med 01/15/17 14:00 Ordered 40 mg IVPUSH TID Isosorbide Mononitrate [Imdur] Med 01/16/17 09:00 Ordered 60 mg PO DAILY Metoprolol Tartrate Med 01/16/17 09:00 Ordered 50 mg PO DAILY Ondansetron [Zofran ODT] Med 01/15/17 12:14 Ordered 4 mg PO Q6H PRN Pravastatin Sodium Med 01/15/17 21:00 Ordered 1 tab PO BEDTIME Sodium Chloride 0.9% [Saline Flush] Med 01/15/17 12:14 Ordered 10 ml FLUSH ASDIRECTED PRN Zolpidem [Ambien] Med 01/15/17 12:14 Ordered 5 mg PO BEDTIME PRN Antiembolic Hose [OM.PC] Per Unit Routine Oth 01/15/17 12:15 Ordered Peripheral IV Insertion Adult [OM.PC] Routine Oth 01/15/17 12:14 Ordered Saline Lock Insert [OM.PC] Routine Oth 01/15/17 12:14 Ordered Resuscitation Status Routine Resus Stat 01/15/17 12:14 Ordered Medication Orders Clopidogrel Bisulfate (Plavix) 75 mg PO DAILY [facility] Furosemide (Lasix) 40 mg IVPUSH TID [facility] Isosorbide Mononitrate (Imdur) 60 mg PO DAILY [facility] Non-Formulary Medication (Apixaban [Eliquis]) 5 mg PO BID [facility] Non-Formulary Medication (Candesartan Cilexetil [Candesartan Cilexetil]) 32 mg PO DAILY [facility] Non-Formulary Medication (Metoprolol Tartrate) 50 mg PO DAILY [facility] Non-Formulary Medication (Pravastatin Sodium) 1 tab PO BEDTIME [facility] Assessment/Plan Comment:: #1 shortness of breath Due to significant pleural effusion and CHF Due to acute exacerbation of likely combined systolic and diastolic congestive heart failure Last echocardiogram showed low normal ejection fraction in the 50-55% range The patient has been on Lasix 40 mg daily which was increased to twice a day a few days prior to admission I will give the patient 40 mg IV Lasix 3 times a day Follow electrolytes and renal function test with that Continue patient on ARB, metoprolol Thoracentesis can be considered the patient does not show significant improvement. #2 atrial fibrillation with controlled ventricular rate Continue metoprolol Continue apixaban for stroke prophylaxis #3 coronary artery disease Treat the patient with Plavix, metoprolol, statin, ARB, Imdur #4 CODE STATUS was discussed with the patient and . Patient opted for full code.
[2017-01-15] MEDS: Furosemide 40 MG/4 ML VIAL IVPUSH SCH ×2 (14:13→20:41)
[2017-01-15] MEDS ORDERED: APIXABAN 5 MG PO SCH (21:00)
[2017-01-15] MEDS ORDERED: Pravastatin 20 MG Tab PO SCH (21:00)
[2017-01-16] MEDS: Isosorbide Mononitrate 60 MG Tab.ER PO SCH (05:17)
[2017-01-16] MEDS: Clopidogrel 75 MG Tab PO SCH (07:56)
[2017-01-16] MEDS: APIXABAN 5 MG PO SCH ×2 (07:58→18:07)
[2017-01-16] MEDS ORDERED: CANDESARTAN CILEXETIL 32 MG PO SCH (09:00)
[2017-01-16] MEDS ORDERED: Metoprolol Tartrate 50 MG Tab PO SCH (09:00)
[2017-01-16] MEDS ORDERED: Clopidogrel 75 MG Tab PO SCH (09:00)
[2017-01-16] MEDS: Metoprolol Tartrate 50 MG Tab PO SCH (09:44)
[2017-01-16] MEDS: CANDESARTAN CILEXETIL 32 MG PO SCH (09:45)
[2017-01-16] MEDS: Furosemide 40 MG/4 ML VIAL IVPUSH SCH ×3 (09:48→21:15)
[2017-01-16] MEDS: Sodium Chloride 0.9% 10 ML Syringe FLUSH PRN ×3 (09:49→21:16)
[2017-01-16] MEDS: Sodium Chloride 0.9% 1,000 ML IV SCH (12:11)
[2017-01-16] MEDS ORDERED: Pravastatin 20 MG Tab PO SCH (18:00)
[2017-01-17] MEDS: Isosorbide Mononitrate 60 MG Tab.ER PO SCH (06:21)
[2017-01-17 07:41] VITALS: BP 98/79
[2017-01-17] MEDS: Clopidogrel 75 MG Tab PO SCH (07:42)
[2017-01-17] MEDS: APIXABAN 5 MG PO SCH (07:42)
[2017-01-17] MEDS: Metoprolol Tartrate 50 MG Tab PO SCH (07:43)
[2017-01-17] MEDS: CANDESARTAN CILEXETIL 32 MG PO SCH (07:43)
[2017-01-17] MEDS: Sodium Chloride 0.9% 1,000 ML IV SCH (07:52)
--- NOTE | 2017-01-17 09:47 | PN ---
DATE: 01/16/2017 HISTORY OF PRESENT ILLNESS: Mr. Mcbride is an 81-year-old gentleman, who was admitted from clinic with history of increasing shortness of breath with a background history of congestive heart failure as well as a 5 pounds weight gain in the previous 5 days. Mr. Mcbride was recently hospitalized in [place] from December 22 to December 25, when he presented with [id number] congestive heart failure, atypical chest pain, and elevated D-dimer with negative PE workup. He had stopped taking his furosemide for several days and presented with increasing shortness of breath at that time as well. He was diuresed, he improved and was discharged to home. He was now seen again in clinic on the day of admission with the above symptoms. A 2-view chest x-ray was taken at the clinic, which showed generalized mild pulmonary venous congestion, as well as an asymmetric large dependent new subpulmonic pleural fluid accumulation filling the lower half of the left hemithorax. This was a new finding compared to a film from March 15, 2016. After speaking with Mr. Mcbride today, I did look to see what studies had been done in the previous admission, and in fact, there was a single-view chest x-ray , as well as a CT scan of the chest performed with IV contrast. Chest x-ray at that time showed cardiomegaly without signs of congestive heart failure, and a CT scan of the chest showed no pulmonary embolism or aortic dissection. There was cardiomegaly and coronary artery disease and minimal bilateral paraseptal emphysema. There was no evidence for a pleural effusion at that time. Therefore, in the last 3 weeks this very large pleural effusion has appeared. Once we were able to clarify that, we were able to make a better plan of treatment. His other past medical history includes chronic congestive heart failure, atrial fibrillation, currently on anticoagulation with Eliquis, hypertension, coronary artery disease, cerebral vascular disease, chronic kidney disease, stage 3, bilateral carotid artery disease. He is an ex-smoker of cigarettes. He smoked from the age of 15 to the age of 51, approximately 1 pack of cigarettes a day, for a minimum of 36-pack year history of smoking. He is followed by Dr. Gaffney of Cardiology. During this admission, he also presented with hyponatremia with sodium of 123. Review of his records shows this to be a relatively new finding and is most likely secondary to his congestive heart failure. Repeat lab work today included a CBC and a basic panel. CBC showed hemoglobin and hematocrit of 13 and 38, white count and platelets were normal. Sodium again was 123, with potassium of 4.5, BUN and creatinine of 20 and 1.3, with a GFR of 53. Blood sugar 108. Magnesium was normal at 2.0. Medications are reviewed. He is currently on Eliquis as well as Plavix. His usual medications were continued. He is on furosemide 40 mg IV push 3 times a day. Review of his clinical data shows good urine output in response to the Lasix. He is voiding and moving his bowels. He is tolerating his diet. Vital signs are stable. He is afebrile. PHYSICAL EXAMINATION: General: On physical exam, he is seated in his room. He voices no new concerns, but he is frustrated over the finding of the pleural effusion. He seemed to think that no chest x-ray was performed at the previous admission of December 22. I did look this up, found the above chest x-ray and CT scan of the chest and brought copies of the reports back to the room to show him that, first of all, the studies were done, and second of all we now know that this pleural effusion is of acute onset over the last 3 weeks. He denies any chest pain. He is comfortable at rest, but becomes short of breath with any activity. He denied any leg or calf pain or any other new symptoms of concern. Vital Signs: On exam, blood pressure was 100/63, pulse 75, respiratory rate 18, oxygen saturation 92% on supplemental oxygen, and he was afebrile. HEENT: Unremarkable. ENT is clear. Neck: No JVDs or bruits. Chest: Showed diminished bilateral breath sounds bilaterally with marked dullness to percussion over the left posterior lung field about [address] chest. Heart: Showed regular rate and rhythm. Abdomen: Obese, soft, benign. Extremities: Showed chronic lower extremity edema. IMPRESSION: An 81-year-old gentleman with history of chronic congestive heart failure, presents now with weight gain and shortness of breath. Chest x-ray shows a new large subpulmonic pleural fluid accumulation in the left hemithorax. PLAN: There has not been any progress in reduction of the pleural effusion despite the IV Lasix, and we discussed the possibility of thoracentesis with Mr. Mcbride. He is open to this idea. We will call [facility] in the morning and we will arrange for transfer for thoracentesis and further evaluation of this finding. He is also followed by Dr. Gaffney of Cardiology, and Cardiology can see him as needed once he is transferred. No other changes are made in his care. [facility] /[id number] RICK
[2017-01-17] MEDS ORDERED: Furosemide 40 MG Tab PO ONE (09:52)
[2017-01-17] MEDS: Furosemide 40 MG/4 ML VIAL IVPUSH SCH (09:53)
--- NOTE | 2017-01-17 11:11 | DISCH ---
DISCHARGE DIAGNOSES: 1. Large left pleural effusion, new since 12/22/2016. 2. Dyspnea secondary to above as well as congestive heart failure. 3. Chronic congestive heart failure. 4. Hyponatremia, unchanged. 5. Atrial fibrillation by history, on Eliquis. 6. Hypertension, controlled. 7. Coronary artery disease, cerebrovascular disease, and carotid artery disease by history. 8. Chronic kidney disease stage 3. BRIEF HISTORY OF PRESENT ILLNESS: Mr. Mcbride is an 81-year-old gentleman who was initially admitted from 12/22 to 12/25 with acute on chronic heart failure after he had skipped several days of his furosemide. He was diuresed and improved and was discharged to home. He was seen in clinic on 01/15, the day of admission, with increasing shortness of breath and a 5-pound weight gain over previous 5 days. A 2 view chest x-ray taken in the clinic showed generalized mild pulmonary venous congestion, but there was a new asymmetric, large, dependent subpulmonic pleural effusion on the left. We have studies that were done on 12/22, which confirmed that there was no effusion at that time, therefore this large pleural effusion has appeared over the last 3 weeks. PERTINENT LABS AND X-RAYS: Chest x-ray performed in clinic on 12/15 shows new large left pleural effusion. Repeat chest x-ray performed yesterday 01/16 shows no interval change compared to the . CBC on the day of admission showed normal white count and platelets. Hemoglobin and hematocrit were 13 and 38. Chemistry showed a sodium of 123, BUN and creatinine of 20 and 1.3 with a GFR of 53. Magnesium 2.0. BNP 269. HOSPITAL COURSE: Mr. Mcbride was admitted as an inpatient. His usual medications were continued. He was given Lasix 40 mg IV t.i.d. He had good urine output in response to the Lasix, but the pleural effusion and serum sodium were unchanged. Appetite has been fair and he has been tolerating his diet. He has been voiding and moving his bowels. Vital signs have been stable and he is afebrile. PHYSICAL EXAMINATION: Today, he is seated in his room. He will be leaving shortly for transfer to [place]. He denies any chest pain or shortness of breath. Vital signs: Blood pressure is 98/79, pulse 75, respiratory rate 20, oxygen saturation 90% on room air. He is afebrile. Weight 267 pounds 3.2 ounces. Height 6 feet 1 inch. HEENT: Unremarkable. ENT was clear. Neck: No JVDs or bruits. No adenopathy. Chest: Showed air movement on the right. The left chest was dull to percussion with absent breath sounds about 2/[address] up on the posterior left chest wall. Heart: Showed regular rate and rhythm. Abdomen: Benign. Extremities: Showed chronic lower extremity edema. Neurological: intact. The case was discussed with Dr. Watson who had seen Mr. Mcbride earlier in the week himself. He excepted Mr. Mcbride for transfer to [place] for possible thoracentesis for the new large left pleural effusion. He will go to [place] by private vehicle. Family will be transporting him. We feel he is hemodynamically stable and can be transported by family. CONDITION AT THE TIME OF DISCHARGE: Stable. CODE STATUS DURING THIS ADMISSION: Full code. [facility] /[id number]
== END 2017-01-17 10:30 | DRG 291 ==
LOC: UNDOADMIN 11:19 → DL.MS 11:19
PROVIDERS: ADMIT Internal Medicine; ATTEND Internal Medicine
DX: I13.0 Hypertensive heart and chronic kidney disease with heart failure and stage 1 through stage 4 chronic kidney disease, or unspecified chronic kidney disease (principal); I50.43 Acute on chronic combined systolic (congestive) and diastolic (congestive) heart failure; E87.1 Hypo-osmolality and hyponatremia; J91.8 Pleural effusion in other conditions classified elsewhere; N18.3 Chronic kidney disease, stage 3 (moderate); I48.91 Unspecified atrial fibrillation; I25.119 Atherosclerotic heart disease of native coronary artery with unspecified angina pectoris; E78.00 Pure hypercholesterolemia, unspecified; R06.00 Dyspnea, unspecified; I65.29 Occlusion and stenosis of unspecified carotid artery; I25.2 Old myocardial infarction; Z79.01 Long term (current) use of anticoagulants; Z79.02 Long term (current) use of antithrombotics/antiplatelets; Z95.5 Presence of coronary angioplasty implant and graft; Z86.73 Personal history of transient ischemic attack (TIA), and cerebral infarction without residual deficits; Z85.828 Personal history of other malignant neoplasm of skin; Z79.899 Other long term (current) drug therapy; Z87.891 Personal history of nicotine dependence; Z88.0 Allergy status to penicillin; Z88.8 Allergy status to other drugs, medicaments and biological substances
CPT/HCPCS: 36415; 71020; 80048; 83735; 83880; 84100; 85025; A9270-GY; J1940; J7030; J7050

== ENCOUNTER 2019-09-08 06:33 | Day surgery (SDC) | payer MEDICARE, BC ==
[~2019-09-08 06:33] MED LIST: Acetaminophen 325 MG Tab PO PRN; Cataract Ophth Solution EYELF ONE; Moxifloxacin 0.5% Ophth Soln 3 ML Bottle EYELF ONE; Ondansetron 4 MG/2 ML SDV IVPUSH PRN; Phenylephrine 10% Ophth Soln 5 ML Bot EYELF ONE; Phenylephrine 10% Ophth Soln 5 ML Bot EYELF PRN; Povidone-Iodine 5% Sterile Ophth Soln 30 ML Bottle EYELF ONE; Proparacaine 0.5% Ophth Soln 15 ML Bottle EYELF ONE; Proparacaine 0.5% Ophth Soln 15 ML Bottle ONE; Sodium Chloride 0.9% 10 ML Syringe FLUSH PRN; Timolol Maleate 0.5% Ophth Soln 5 ML Bottle EYELF ONE; Tropicamide 1% Ophth Soln 15 ML Bottle EYELF ONE
[2019-09-08] MEDS ORDERED: Dexamethasone 4 MG/ML SDV IV ONE (06:34)
[2019-09-08] MEDS ORDERED: Sodium Chloride 0.9% 10 ML Syringe IV ONE (06:34)
[2019-09-08] MEDS ORDERED: Midazolam 1 MG/ML 2 ML SDV IV ONE (06:34)
[2019-09-08] MEDS ORDERED: Lidocaine 1% 30 ML SDV ONE (08:08)
[2019-09-08] MEDS ORDERED: Povidone-Iodine 5% Sterile Ophth Soln 30 ML Bottle EYELF ONE (08:08)
[2019-09-08] MEDS ORDERED: Tetracaine HCl/PF 0.5% 4 ML Bottle EYELF ONE (08:08)
[2019-09-08] MEDS ORDERED: Vancomycin 500 MG SDV EYELF ONE (08:09)
[2019-09-08] MEDS ORDERED: Balanced Salt Solution Ophth Irrig 500 ML Bottle IOCULAR ONE (08:09)
[2019-09-08] MEDS ORDERED: Apraclonidine 0.5% Ophth Soln 5 ML Bot EYELF ONE (08:09)
[2019-09-08] MEDS ORDERED: Diclofenac Sodium 0.1% Ophth Soln 5 ML Bottle EYELF ONE (08:09)
[2019-09-08] MEDS ORDERED: Phenylephrine 10% Ophth Soln 5 ML Bot EYELF ONE (08:09)
[2019-09-08] MEDS ORDERED: Chondroitin Sulfate/Hyaluronate Sodium Ophth Inj 0.75 ML Syringe EYELF ONE (08:09)
[2019-09-08] MEDS ORDERED: Dexamethasone 4 MG/ML SDV IOCULAR ONE (08:10)
--- NOTE | 2019-09-08 10:12 | OR ---
DATE: 09/08/2019 PREOPERATIVE DIAGNOSIS: Visually significant mixed cataract, left eye. POSTOPERATIVE DIAGNOSIS: Visually significant mixed cataract, left eye. PROCEDURE: Extracapsular cataract extraction with intraocular lens implant, left eye. ANESTHESIA: Topical/local MAC. COMPLICATIONS: None. INDICATION: Mr. Mcbride was seen in the clinic with complaints of blurred vision. The examination revealed visually significant mixed cataract. I explained the options, offered cataract surgery, and I explained risks, including, but not limited to, infection, retinal detachment, loss of vision, need for additional surgery, and risks associated with anesthesia, amongst others. We discussed implant options. He has requested surgery with a monofocal implant. OPERATIVE DESCRIPTION: After informed consent was obtained and the risks, benefits, and alternatives were explained, the patient was brought to the operative suite and topical anesthesia was administered. The patient was then prepped and draped in the sterile fashion and attention was placed on the left eye. A sterile lid speculum was placed into the left eye to allow operative exposure. A full-thickness paracentesis was made in the temporal portion of the operative eye. Preservative-free lidocaine 0.1 mL was injected into the anterior chamber followed by viscoelastic. A full-thickness corneal incision was then made into the anterior chamber. A bent needle cystotome was used to create a small cruz in the anterior capsule. The capsulorrhexis forceps was then used to create a 360-degree curvilinear capsulorrhexis. The nucleus was then removed using a phacoemulsification handpiece and the remaining cortical material was then removed with irrigation and aspiration handpiece. Following removal of the cortical material, the capsular bag was then inspected and noted to be free of any holes or tears. Viscoelastic was then injected into the capsular bag and the intraocular lens was inserted into the capsular bag. The viscoelastic material was then removed from both the anterior and posterior chambers and from behind the IOL. The lens and capsular bag were then reinspected. The IOL was well centered and the capsular bag intact. The wound and paracentesis sites were inspected and hydrated with balanced saline solution. Both were found to be self- sealing. The intraocular pressure was assessed digitally and found to be within normal range. A good red reflex was noted at the completion of the procedure. No complications occurred during the operation. At the completion of the procedure, Maxitrol, Voltaren, and Iopidine drops were placed into the operative eye. A sterile eye shield was placed over the operative eye and the patient was transported to the postoperative recovery area having tolerated the procedure well. Postoperative instructions were given along with a postoperative appointment. The patient was advised to call with any questions or concerns. [facility] /[id number]
[2019-09-08 11:51] VITALS: BP 136/75; PULSE 55
== END 2019-09-08 09:16 | disposition home or self-care (01) ==
LOC: DL.SDS 06:33
PROVIDERS: ATTEND Ophthalmology
DX: H25.813 Combined forms of age-related cataract, bilateral (principal); I13.0 Hypertensive heart and chronic kidney disease with heart failure and stage 1 through stage 4 chronic kidney disease, or unspecified chronic kidney disease; N18.3 Chronic kidney disease, stage 3 (moderate); I50.9 Heart failure, unspecified; E78.5 Hyperlipidemia, unspecified; Z87.891 Personal history of nicotine dependence; Z88.5 Allergy status to narcotic agent; Z88.8 Allergy status to other drugs, medicaments and biological substances
CPT/HCPCS: 00142; 66984; J1100; J2001; J2250; J3370; V2632

== ENCOUNTER 2019-09-15 09:18 | Day surgery (SDC) | payer MEDICARE, BC ==
[~2019-09-15 09:18] MED LIST changes: -Cataract Ophth Solution EYELF ONE; +Cataract Ophth Solution EYERT ONE; -Moxifloxacin 0.5% Ophth Soln 3 ML Bottle EYELF ONE; +Moxifloxacin 0.5% Ophth Soln 3 ML Bottle EYERT ONE; -Phenylephrine 10% Ophth Soln 5 ML Bot EYELF ONE; -Phenylephrine 10% Ophth Soln 5 ML Bot EYELF PRN; +Phenylephrine 10% Ophth Soln 5 ML Bot EYERT ONE; +Phenylephrine 10% Ophth Soln 5 ML Bot EYERT PRN; -Povidone-Iodine 5% Sterile Ophth Soln 30 ML Bottle EYELF ONE; +Povidone-Iodine 5% Sterile Ophth Soln 30 ML Bottle EYERT ONE; -Proparacaine 0.5% Ophth Soln 15 ML Bottle EYELF ONE; +Proparacaine 0.5% Ophth Soln 15 ML Bottle EYERT ONE; -Proparacaine 0.5% Ophth Soln 15 ML Bottle ONE; -Timolol Maleate 0.5% Ophth Soln 5 ML Bottle EYELF ONE; +Timolol Maleate 0.5% Ophth Soln 5 ML Bottle EYERT ONE; -Tropicamide 1% Ophth Soln 15 ML Bottle EYELF ONE; +Tropicamide 1% Ophth Soln 15 ML Bottle EYERT ONE
[2019-09-15] MEDS ORDERED: Midazolam 1 MG/ML 2 ML SDV IV ONE ×2 (09:19)
[2019-09-15] MEDS ORDERED: Sodium Chloride 0.9% 10 ML Syringe IV ONE ×2 (09:19)
[2019-09-15] MEDS ORDERED: Dexamethasone 4 MG/ML SDV IV ONE ×2 (09:19)
[2019-09-15] MEDS ORDERED: Tetracaine HCl/PF 0.5% 4 ML Bottle EYERT ONE (10:29)
[2019-09-15] MEDS ORDERED: Povidone-Iodine 5% Sterile Ophth Soln 30 ML Bottle EYERT ONE (10:30)
[2019-09-15] MEDS ORDERED: Lidocaine 1% 30 ML SDV ONE (10:30)
[2019-09-15] MEDS ORDERED: Apraclonidine 0.5% Ophth Soln 5 ML Bot EYERT ONE (10:30)
[2019-09-15] MEDS ORDERED: Dexamethasone/Neomycin/Polymyxin B Ophth Oint 3.5 GM Tube EYERT ONE (10:31)
[2019-09-15] MEDS ORDERED: Diclofenac Sodium 0.1% Ophth Soln 5 ML Bottle EYERT ONE (10:31)
[2019-09-15] MEDS ORDERED: Balanced Salt Solution Ophth Irrig 500 ML Bottle IOCULAR ONE (10:31)
[2019-09-15] MEDS ORDERED: Vancomycin 500 MG SDV EYERT ONE (10:32)
[2019-09-15] MEDS ORDERED: Chondroitin Sulfate/Hyaluronate Sodium Ophth Inj 0.75 ML Syringe EYERT ONE (10:32)
[2019-09-15] MEDS ORDERED: Dexamethasone 4 MG/ML SDV IOCULAR ONE (10:34)
[2019-09-15 13:27] VITALS: BP 124/108; PULSE 51
--- NOTE | 2019-09-16 08:21 | OR ---
DATE: 09/15/2019 PREOPERATIVE DIAGNOSIS: Visually significant mixed cataract, right eye. POSTOPERATIVE DIAGNOSIS: Visually significant mixed cataract, right eye. PROCEDURE: Extracapsular cataract extraction with intraocular lens implant, right eye. ANESTHESIA: Topical/local MAC. COMPLICATIONS: None. INDICATION: Mr. Mcbride was seen in the clinic with complaints of blurred vision. His examination revealed visually significant mixed cataract. I explained options, offered cataract surgery, and I explained risks preoperatively including the potential for infection, retinal detachment, loss of vision, need for additional surgery, and risks associated with anesthesia. We discussed implant options. He has requested a monofocal implant. OPERATIVE DESCRIPTION: After informed consent was obtained and the risks, benefits, and alternatives were explained, the patient was brought to the operative suite and topical anesthesia was administered. The patient was then prepped and draped in the sterile fashion and attention was placed on the right eye. A sterile lid speculum was placed into the right eye to allow operative exposure. A full-thickness paracentesis was made in the temporal portion of the operative eye. Preservative-free lidocaine 0.1 mL was injected into the anterior chamber followed by viscoelastic. A full-thickness corneal incision was then made into the anterior chamber. A bent needle cystotome was used to create a small cruz in the anterior capsule. The capsulorrhexis forceps was then used to create a 360-degree curvilinear capsulorrhexis. The nucleus was then removed using a phacoemulsification handpiece and the remaining cortical material was then removed with irrigation and aspiration handpiece. Following removal of the cortical material, the capsular bag was then inspected and noted to be free of any holes or tears. Viscoelastic was then injected into the capsular bag and the intraocular lens was inserted into the capsular bag. The viscoelastic material was then removed from both the anterior and posterior chambers and from behind the IOL. The lens and capsular bag were then reinspected. The IOL was well centered and the capsular bag intact. The wound and paracentesis sites were inspected and hydrated with balanced saline solution. Both were found to be self- sealing. The intraocular pressure was assessed digitally and found to be within normal range. A good red reflex was noted at the completion of the procedure. No complications occurred during the operation. At the completion of the procedure, Maxitrol, Voltaren, and Iopidine drops were placed into the operative eye. A sterile eye shield was placed over the operative eye and the patient was transported to the postoperative recovery area having tolerated the procedure well. Postoperative instructions were given along with a postoperative appointment. The patient was advised to call with any questions or concerns. [facility] /[id number]
== END 2019-09-15 11:43 | disposition home or self-care (01) ==
LOC: DL.SDS 09:18
PROVIDERS: ATTEND Ophthalmology
DX: H25.811 Combined forms of age-related cataract, right eye (principal); I25.10 Atherosclerotic heart disease of native coronary artery without angina pectoris; I11.0 Hypertensive heart disease with heart failure; I50.9 Heart failure, unspecified; E78.5 Hyperlipidemia, unspecified; I48.0 Paroxysmal atrial fibrillation; Z95.5 Presence of coronary angioplasty implant and graft; Z87.891 Personal history of nicotine dependence; Z88.0 Allergy status to penicillin; Z88.8 Allergy status to other drugs, medicaments and biological substances; Z79.01 Long term (current) use of anticoagulants
CPT/HCPCS: 00142; 66984; 93005; A9270; J1100; J2001; J2250; J3370; V2632

== ENCOUNTER 2020-07-22 16:17 | Emergency (ER) | payer MEDICARE, BC ==
[2020-07-22 17:10] LABS: ANION GAP 11.2 mEq/L (7-13); CHLORIDE,CL 97 mmol/L (98-107); SODIUM,NA 134 mmol/L (136-145)
--- NOTE | 2020-07-22 17:19 | CT ---
PROCEDURE INFORMATION: Exam: CT Head Without Contrast Exam date and time: 07/22/2020 4:51 PM Age: 85 years old Clinical indication: Other: Falling today TECHNIQUE: Imaging protocol: Computed tomography of the head without contrast. Radiation optimization: All CT scans at this facility use at least one of these dose optimization techniques: automated exposure control; mA and/or kV adjustment per patient size (includes targeted exams where dose is matched to clinical indication); or iterative reconstruction. COMPARISON: No relevant prior studies available. FINDINGS: Brain: A mild amount of decreased attenuation is present within the periventricular white matter. Finding is nonspecific but most often seen in chronic small-vessel ischemic change. An area of encephalomalacia is present within the frontal lobe on the left. This is compatible with prior infarct. This does not have an acute appearance. No acute hemorrhage or infarct identified. There is no intracranial mass, mass effect, midline shift or edema. There are no abnormal extra-axial fluid collections. Cerebral ventricles: The ventricles and sulci are moderately prominent consistent with global volume loss/atrophy. Paranasal sinuses: Visualized sinuses are unremarkable. No fluid levels. Mastoid air cells: Visualized mastoid air cells are well aerated. Bones/joints: Unremarkable. No acute fracture. Soft tissues: Unremarkable. IMPRESSION: 1. 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 No acute intracranial abnormality present.
--- NOTE | 2020-07-22 17:21 | CT ---
PROCEDURE INFORMATION: Exam: CT Cervical Spine Without Contrast Exam date and time: 07/22/2020 4:51 PM Age: 85 years old Clinical indication: Other: Falling today TECHNIQUE: Imaging protocol: Computed tomography images of the cervical spine without contrast. Radiation optimization: All CT scans at this facility use at least one of these dose optimization techniques: automated exposure control; mA and/or kV adjustment per patient size (includes targeted exams where dose is matched to clinical indication); or iterative reconstruction. COMPARISON: No relevant prior studies available. FINDINGS: Vertebrae: Cervical vertebral body height and alignment are well maintained. Moderate to advanced degenerative changes are present within the disc spaces with disc space narrowing, endplate sclerosis and endplate osteophyte formation. No cervical spine fracture identified. Moderate degenerative changes are present within the facet joints. Facet joints remain in anatomic alignment. No facet fracture identified. Soft tissues: Unremarkable. Sinuses: There is soft tissue within the sphenoid sinus on the right. This chronic sphenoid sinusitis. Lungs: Possible bullous change within the medial aspect of the left upper lobe. No definite pneumothorax within the lung apices. IMPRESSION: [id number] grade degenerative disc and degenerative joint disease. No acute fracture or subluxation within the cervical spine.
--- NOTE | 2020-07-22 17:39 | CT ---
PROCEDURE INFORMATION: Exam: CT Pelvis Without Contrast; Skeletal Exam date and time: 07/22/2020 4:51 PM Age: 85 years old Clinical indication: Other: Falling today TECHNIQUE: Imaging protocol: Computed tomography images of the pelvis without contrast. Exam focused on the skeletal structures. Radiation optimization: All CT scans at this facility use at least one of these dose optimization techniques: automated exposure control; mA and/or kV adjustment per patient size (includes targeted exams where dose is matched to clinical indication); or iterative reconstruction. COMPARISON: No relevant prior studies available. FINDINGS: Bones/joints: Unremarkable. No acute fracture. No dislocation. Soft tissues: Unremarkable. IMPRESSION: No acute findings.
[2020-07-22] MEDS ORDERED: Levofloxacin 500 MG Tab PO ONE (17:51)
--- NOTE | 2020-07-22 18:00 | EDM.PDOC ---
ED HPI GENERAL MEDICAL PROBLEM - General Chief Complaint: Trauma Stated Complaint: BY AMBULANCE Time Seen by Provider: 07/22/20 16:30 Source of Information: Reports: Patient History Limitations: Reports: No Limitations - History of Present Illness INITIAL COMMENTS - FREE TEXT/NARRATIVE: ED via EMS report of falling twice today, legs gave out. Denies c/o pain. No loss of consciousness. No neck extremity or pip pain. Hx of falls in past. Hit head on something, scrape to forehead. No nausea or vomiting. No head pain. No report of confusion. On plavix . - Related Data Allergies Allergy/AdvReac Type Severity Reaction Status Date / Time carvedilol Allergy Severe Chest Verified 09/14/19 11:38 Tightness Penicillins Allergy Severe Swelling Verified 09/14/19 11:38 procaine [From Novocain] Allergy Severe Swelling Verified 09/14/19 11:38 metolazone Allergy Unknown Other Verified 09/14/19 11:38 Home Meds: Home Meds Bilberry Fruit [Bilberry] 150 mg PO DAILY 01/29/16 [History] Clopidogrel [Plavix] 75 mg PO DAILY 01/29/16 [History] Flaxseed Oil [Flaxseed] 1,000 mg PO DAILY 01/29/16 [History] Furosemide 60 mg PO BID 01/29/16 [History] Pravastatin Sodium [Pravachol] 40 mg PO BEDTIME 01/29/16 [History] Ubidecarenone [Co Q-10] 100 mg PO DAILY 01/29/16 [History] Apixaban [Eliquis] 5 mg PO BID 12/22/16 [History] Nitroglycerin 0.4 mg SL DAILY PRN 01/15/17 [History] Calcium Carbonate [Calcium] 600 mg PO .EVENING 01/11/19 [History] Calcium Carbonate/Vitamin D3 [Calcium 600-Vit D3 800 Tablet] 1 tab PO DAILY 01/11/19 [History] Fluocinonide [Lidex 0.05% Crm] 1 applic TOP ASDIRECTED 01/11/19 [History] Ketorolac [Acular 0.5% Ophth Soln] 1 drop EYEBOTH ASDIRECTED 01/11/19 [History] Lecithin 1,200 mg PO DAILY 01/11/19 [History] Moxifloxacin HCl [Moxifloxacin] 1 drop EYEBOTH ASDIRECTED 01/11/19 [History] Potassium Chloride 10 meq PO BID 01/11/19 [History] prednisoLONE acetate [Pred Forte 1% Ophth Susp] 1 drop EYEBOTH ASDIRECTED 01/11/19 [History] Benzocaine [Pain Relieving Ointment] 1 applic TOP ASDIRECTED 09/01/19 [History] Cholecalciferol (Vitamin D3) [Vitamin D3] 1,000 unit PO ASDIRECTED 09/01/19 [History] Hydrocodone/Acetaminophen [Hydrocodone-Acetamin 5-325 mg] 1 tab PO ASDIRECTED 09/01/19 [History] Past Medical History HEENT History: Reports: Cataract, Hard of Hearing, Impaired Vision, Other (See Below) Other HEENT History: UPPER AND LOWER DENTURE PLATES Cardiovascular History: Reports: Afib, Angina, CAD, Cardiomyopathy, High Cholesterol, Hypertension, NH, PTCA, Stents, Other (See Below) Other Cardiovascular History: VENTRICULAR TRIGEMINY. BILAT CAROTID BRUITS. stents x7. CORONARY ANGIOPLASTY Respiratory History: Reports: PE, SOB Gastrointestinal History: Reports: None Genitourinary History: Reports: BPH, Chronic Renal Insuffiency, Other (See Below) Other Genitourinary History: CKD STAGE III. 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 WRIST Neurological History: Reports: CVA Psychiatric History: Reports: None Endocrine/Metabolic History: Reports: Obesity/BMI 30+, Osteopenia Hematologic History: Reports: None Immunologic History: Reports: None Oncologic (Cancer) History: Reports: Basal Cell Carcinoma, Other (See Below) Other Oncologic History: BASAL CELL - SKIN Dermatologic History: Reports: None - Infectious Disease History Infectious Disease History: Reports: Chicken Pox, Measles, Mumps - Past Surgical History HEENT Surgical History: Reports: Cataract Surgery, Oral Surgery Cardiovascular Surgical History: Reports: Coronary Artery Stent, Other (See Below) Other Cardiovascular Surgeries/Procedures: 7 stents. ANGIOPLASTY Respiratory Surgical History: Reports: None GI Surgical History: Reports: Colonoscopy Male Surgical History: Reports: TURP-Transurethral Resection of Prostate Endocrine Surgical History: Reports: None Neurological Surgical History: Reports: Laminectomy Musculoskeletal Surgical History: Reports: Other (See Below) Other Musculoskeletal Surgeries/Procedures:: FOOT SURGERY - DENIES Oncologic Surgical History: Reports: None Dermatological Surgical History: Reports: None, Skin Biopsy Social & Family History - Family History Family Medical History: No Pertinent Family History - Caffeine Use Caffeine Use: Reports: Tea Other Caffeine Use: AVERAGE OF 3 CUPS DAILY OF TEA - Living Situation & Occupation Living situation: Reports: , with Spouse Occupation: Retired Review of Systems - Review of Systems Review Of Systems: Comprehensive ROS is negative, except as noted in HPI. ED EXAM, GENERAL - Physical Exam Exam: See Below Exam Limited By: No Limitations General Appearance: Alert, No Apparent Distress Eye Exam: Bilateral Eye: EOMI, PERRL (2mm) Ears: Normal External Exam, Hearing Loss (mild) Nose: Normal Inspection Throat/Mouth: Normal Inspection Head: Normocephalic, Other (abrasion dime size left lateral forehead) Neck: Non-Tender, Full Range of Motion. No: Tender Lateral, Tender Midline Respiratory/Chest: No Respiratory Distress, Lungs Clear, Normal Breath Sounds Cardiovascular: Normal Peripheral Pulses, Regular Rate, Rhythm GI/Abdominal: Normal Bowel Sounds, Soft, Non-Tender Back Exam: Normal Inspection. No: Paraspinal Tenderness, Vertebral Tenderness Extremities: Normal Inspection Neurological: Alert, Oriented, Normal Cognition, Other (GSC 15) Psychiatric: Normal Affect, Normal Mood Skin Exam: Warm, Dry, Intact, Normal Color #1 Interpretation EKG Date: 07/15/20 Time: 17:09 Rhythm: A-Fib Rate (Beats/Min): 80 P-Wave: Variable QRS: Normal Course - Orders/Labs/Meds Labs: Laboratory Tests 07/22/20 07/22/20 07/22/20 Range/Units 16:41 16:41 16:41 WBC 18.6 H (5.0-10.0) 10^3/uL RBC 4.46 L (4.6-6.2) 10^6/uL Hgb 14.6 D (14.0-18.0) g/dL Hct 44.0 (40.0-54.0) % MCV 98.7 D (80-100) fL MCH 32.7 (27.0-34.0) pg MCHC 33.2 (33.0-35.0) g/dL Plt Count 111 L D (150-450) 10^3/uL Neut % (Auto) 91.1 H (42.2-75.2) % Lymph % (Auto) 2.2 L (20.5-50.1) % [place] % (Auto) 6.5 (2-8) % Eos % (Auto) 0.1 L (1.0-3.0) % Baso % (Auto) 0.1 (0.0-1.0) % PT 11.6 (9.0-12.0) SEC INR 1.2 (0.9-1.2) Sodium 134 L (136-145) mmol/L Potassium 3.2 L (3.5-5.1) mmol/L Chloride 97 L (98-107) mmol/L Carbon Dioxide 29 (21-32) mmol/L Anion Gap 11.2 (7-13) mEq/L BUN 18 (7-18) mg/dL Creatinine 1.69 H (0.70-1.30) mg/dL Est Cr Clr Drug Dosing TNP Estimated GFR (MDRD) 39 BUN/Creatinine Ratio 10.7 (No establ ref range) Glucose 114 H (70-99) mg/dL Calcium 8.3 L (8.5-10.1) mg/dL Magnesium 1.7 L (1.8-2.4) mg/dL Total Bilirubin 1.1 H (0.2-1.0) mg/dL AST 29 (15-37) U/L ALT 25 (16-63) U/L Alkaline Phosphatase 61 (46-116) U/L Troponin I < 0.017 (0.000-0.056) ng/mL B-Natriuretic Peptide 145 H (0-100) pg/ml Total Protein 6.8 (6.4-8.2) g/dL Albumin 3.3 L (3.4-5.0) g/dL Globulin 3.5 Albumin/Globulin Ratio 0.94 Urine Color (YELLOW) Urine Appearance (CLEAR) Urine pH (5.0-9.0) Ur Specific [place] (1.005-1.030) Urine Protein (NEGATIVE) Urine Glucose (UA) (NEGATIVE) Urine Ketones (NEGATIVE) Urine Occult Blood (NEGATIVE) Urine Nitrite (NEGATIVE) Urine Bilirubin (NEGATIVE) Urine Urobilinogen (0.2-1.0) mg/dL Ur Leukocyte Esterase (NEGATIVE) Urine RBC /HPF Urine WBC (0-5/HPF) /HPF Ur Epithelial Cells (NOT SEEN) /HPF Amorphous Sediment (NOT SEEN) /HPF Urine Bacteria (0-FEW/HPF) /HPF Urine Mucus (NOT SEEN) /LPF SARS-CoV-2 RNA (KAVYA) (NEGATIVE) 07/22/20 07/22/20 Range/Units 17:12 17:17 WBC (5.0-10.0) 10^3/uL RBC (4.6-6.2) 10^6/uL Hgb (14.0-18.0) g/dL Hct (40.0-54.0) % MCV (80-100) fL MCH (27.0-34.0) pg MCHC (33.0-35.0) g/dL Plt Count (150-450) 10^3/uL Neut % (Auto) (42.2-75.2) % Lymph % (Auto) (20.5-50.1) % [place] % (Auto) (2-8) % Eos % (Auto) (1.0-3.0) % Baso % (Auto) (0.0-1.0) % PT (9.0-12.0) SEC INR (0.9-1.2) Sodium (136-145) mmol/L Potassium (3.5-5.1) mmol/L Chloride (98-107) mmol/L Carbon Dioxide (21-32) mmol/L Anion Gap (7-13) mEq/L BUN (7-18) mg/dL Creatinine (0.70-1.30) mg/dL Est Cr Clr Drug Dosing Estimated GFR (MDRD) BUN/Creatinine Ratio (No establ ref range) Glucose (70-99) mg/dL Calcium (8.5-10.1) mg/dL Magnesium (1.8-2.4) mg/dL Total Bilirubin (0.2-1.0) mg/dL AST (15-37) U/L ALT (16-63) U/L Alkaline Phosphatase (46-116) U/L Troponin I (0.000-0.056) ng/mL B-Natriuretic Peptide (0-100) pg/ml Total Protein (6.4-8.2) g/dL Albumin (3.4-5.0) g/dL Globulin Albumin/Globulin Ratio Urine Color Yellow (YELLOW) Urine Appearance Turbid (CLEAR) Urine pH 6.0 (5.0-9.0) Ur Specific [place] 1.025 (1.005-1.030) Urine Protein 100 H (NEGATIVE) Urine Glucose (UA) Negative (NEGATIVE) Urine Ketones Negative (NEGATIVE) Urine Occult Blood Moderate H (NEGATIVE) Urine Nitrite Negative (NEGATIVE) Urine Bilirubin Negative (NEGATIVE) Urine Urobilinogen 0.2 (0.2-1.0) mg/dL Ur Leukocyte Esterase Moderate H (NEGATIVE) Urine RBC 30-40 H /HPF Urine WBC 75-100 H (0-5/HPF) /HPF Ur Epithelial Cells Few (NOT SEEN) /HPF Amorphous Sediment Few (NOT SEEN) /HPF Urine Bacteria Moderate H (0-FEW/HPF) /HPF Urine Mucus Few H (NOT SEEN) /LPF SARS-CoV-2 RNA (KAVYA) Negative (NEGATIVE) Meds: Medications Discontinued Medications Generic Name Dose Route Start Last Admin Trade Name Freq PRN Reason Stop Dose Admin Levofloxacin 500 mg 07/22/20 17:51 07/22/20 18:01 Levofloxacin 500 Mg Tab PO 07/22/20 17:52 500 mg ONETIME ONE Administration - Re-Assessments/Exams Free Text/Narrative Re-Assessment/Exam: up at bedside to void, steady. CT negative. Frequent voiding small amounts. Remains alert oriented. No c/o pain. Departure - Departure Time of Disposition: 17:57 Disposition: Home, Self-Care 01 Condition: Good Clinical Impression: UTI (urinary tract infection) Qualifiers: Urinary tract infection type: acute cystitis Hematuria presence: without hematuria Qualified Code(s): N30.00 - Acute cystitis without hematuria Fall Qualifiers: Encounter type: initial encounter Qualified Code(s): W19.XXXA - Unspecified fall, initial encounter Scalp abrasion Qualifiers: Encounter type: initial encounter Qualified Code(s): S00.01XA - Abrasion of scalp, initial encounter - Discharge Information *PRESCRIPTION DRUG MONITORING PROGRAM REVIEWED*: No *COPY OF PRESCRIPTION DRUG MONITORING REPORT IN PATIENT DANICA: No Instructions: Abrasion, Urinary Tract Infection, Adult, [id number] Referrals: Dirk Richardson NP [Primary Care Provider] - Forms: ED Department Discharge Additional Instructions: monitor fever urgent follow up if increased weakness, poor appetite,fever vomiting levaquin 250mg every 24 hours clinic recheck on Friday
== END 2020-07-22 18:05 | disposition home or self-care (01) ==
LOC: DL.ED 16:17
DX: S00.01XA Abrasion of scalp, initial encounter (principal); N30.00 Acute cystitis without hematuria; I12.9 Hypertensive chronic kidney disease with stage 1 through stage 4 chronic kidney disease, or unspecified chronic kidney disease; N18.30 Chronic kidney disease, stage 3 unspecified; I48.91 Unspecified atrial fibrillation; I25.10 Atherosclerotic heart disease of native coronary artery without angina pectoris; E78.00 Pure hypercholesterolemia, unspecified; E66.9 Obesity, unspecified; I25.2 Old myocardial infarction; Z95.5 Presence of coronary angioplasty implant and graft; Z86.73 Personal history of transient ischemic attack (TIA), and cerebral infarction without residual deficits; Z88.8 Allergy status to other drugs, medicaments and biological substances; Z88.0 Allergy status to penicillin; Z88.4 Allergy status to anesthetic agent; Z79.02 Long term (current) use of antithrombotics/antiplatelets; Z86.711 Personal history of pulmonary embolism; Z79.01 Long term (current) use of anticoagulants; Z20.822 Contact with and (suspected) exposure to COVID-19; W22.8XXA Striking against or struck by other objects, initial encounter
CPT/HCPCS: 36415; 70450; 72125; 72192; 80053; 81001; 83735; 83880; 84484; 85025; 85610; 87086; 87088; 87186; 93005; 93010; 99284; A9270; U0002